=== PATIENT | male | born 1960 | race Caucasian/White ===

== ENCOUNTER → 2024-03-19 10:04 | Outpatient (REF) | payer OTHER, SELFPAY | LOC: RAD 10:04 | PROVIDERS: ATTENDING PHYSICIAN Nurse Practitioner Acute Care | DX: I35.0 Nonrheumatic aortic (valve) stenosis (principal) | CPT/HCPCS: 74174; 75572; Q9967 ==

== ENCOUNTER 2024-04-25 05:04 | Inpatient (IN) | payer OTHER, SELFPAY ==
[2024-04-09 09:36] VITALS: BMI 28.9
[2024-04-09 09:58] LABS: % Basophils 0.4 % (0-2); % Eosinophils 0.2 % (0-6); % Immature Granulocytes 0.4 % (0-0.5); % Lymphocytes 13.9 % (20.5-51.1); % Monocytes 7.6 % (1.7-9.3); % Neutrophils 77.5 % (42.2-75.2); Absolute Basophils 0.1 10^3/uL (0-0.2); Absolute Immature Granulocytes 0.1 10^3/uL (0-0.05); Absolute Lymphocytes 1.8 10^3/uL (1.2-3.4); Absolute Neutrophils 9.8 10^3/uL (1.4-6.5); Hematocrit 44.1 % (39.0-52.0); Hemoglobin 15.3 g/dL (13.0-18.0); Mean Corp Hgb Conc. 34.7 g/dL (33.0-37.0); Mean Corpuscular Hgb 29.1 pg (27.0-31.0); Mean Corpuscular Volume 83.8 fL (80.0-94.0); Mean Platelet Volume 10.5 fL (7.4-10.4); Nucleated Red Blood Cells % 0 % (-); Platelet Count 283 10^3/uL (130-400); Red Blood Cell Count 5.26 10^6/uL (4.70-6.10); Red Cell Dist. Width 12.5 % (11.5-14.5); White Blood Cell Count 12.7 10^3/uL (4.8-10.8)
[2024-04-09 10:08] LABS: INR 1.04; PT 13.6 Sec (11.4-14.6)
[2024-04-09 10:09] LABS: APTT 28.4 Sec (23.4-35.0)
--- NOTE | 2024-04-09 10:15 | CM ---
Chart reviewed. Met with the patient in PAT. Patient is independent of ADLS, lives with his in a 2 STH, 1 REJI, 0 DME. Reviewed preoperative and postoperative instructions and restrictions, along with showering guidelines. Gave patient 2
soaps. Patient may not be in the driving radius of CT Transitional RN and may need VN. Plan is for the patient to return home with CT Transitional RN vs VN
[2024-04-09 10:20] LABS: ALT (SGPT) 16 U/L (0-50); AST (SGOT) 19 U/L (17-59); Albumin 4.5 g/dl (3.5-5.0); Alkaline Phosphatase 74 U/L (38-126); Blood Urea Nitrogen 19 mg/dl (9-20); Calcium 9.7 mg/dl (8.4-10.2); Carbon Dioxide 24 mmol/L (22-30); Chloride 100 mmol/L (98-107); Direct Bilirubin 0.2 mg/dl (0.0-0.4); Estimated Creatinine Clearance 98 ml/min; Glucose 261 mg/dl (70-99); Potassium 4.1 mmol/L (3.5-5.1); Sodium 139 mmol/L (135-145); Total Bilirubin 0.7 mg/dl (0.2-1.3); Total Protein 7.1 g/dl (6.3-8.2); eGFR > 60.00
[2024-04-09 10:55] LABS: Glycohemoglobin (HgbA1c) 7.4 % (4.0-5.6)
[2024-04-09 11:13] LABS: Urine Albumin Negative (Neg - Trace); Urine Bilirubin Negative (Negative); Urine Character Clear (Clear); Urine Color Yellow; Urine Glucose 3+ (Negative); Urine Ketone Trace (Negative); Urine Leukocyte Negative (Negative); Urine Nitrite Negative (Negative); Urine Occult Blood Negative (Negative); Urine Specific Gravity 1.015 (<1.030); Urine Urobilinogen Negative (Neg - 1+)
[2024-04-25] VITALS (20 sets, daily range): BP systolic 79–162; BP diastolic 52–89; BMI 28.4
[2024-04-25] MEDS: MAGNESIUM OXIDE 500 MG PO (05:45)
[2024-04-25] MEDS: BACTROBAN 2% OINTMENT 1 APPLIC NASAL ×2 (05:45→19:59)
[2024-04-25] MEDS: PROTONIX 40 MG PO (05:45)
[2024-04-25] MEDS: LOPRESSOR 25 MG PO (05:45)
--- NOTE | 2024-04-25 06:23 | W.CVOR.SURPR ---
CVOR Surgeon Immed Pre Op
-
I have examined this patient prior to performance of the scheduled procedure.
The patient's condition is unchanged from the time of the dictated/written History and
Physical and the patient is able to undergo the scheduled procedure.
AVR (Bio) + KATT Clip
[2024-04-25 07:25] LABS: ACT+ - POC 93 Seconds (82-134)
[2024-04-25 08:21] LABS: ACT+ - POC 630 Seconds (82-134)
[2024-04-25 08:29] LABS: Urine Albumin Negative (Neg - Trace); Urine Bilirubin Negative (Negative); Urine Character Clear (Clear); Urine Color Yellow; Urine Glucose 3+ (Negative); Urine Ketone Negative (Negative); Urine Leukocyte Negative (Negative); Urine Nitrite Negative (Negative); Urine Occult Blood Negative (Negative); Urine Specific Gravity 1.015 (<1.030); Urine Urobilinogen Negative (Neg - 1+)
[2024-04-25 08:33] LABS: B.E. - POC 0.5 mmol/L; Glucose - POC 194 mg/dl (70-99); HCO3 - POC 24 mmol/L (21-29); Hematocrit - POC 40 % PCV (42-52); Hemodilution- POC No; Hemoglobin Calculated - POC 13.7; Ionized Calcium - POC 1.18 mmol/L (1.12-1.27); O2 Saturation %Calculated-POC 99.9 5 (92-96); PCO2 - POC 35 mmHg (35-45); PO2 - POC 264 mmHg (80-100); Potassium - POC 4.1 mmol/L (3.6-5.0); Sodium - POC 141 mmol/L (135-145); pH - POC 7.44 (7.35-7.45)
[2024-04-25 08:49] LABS: ACT+ - POC 599 Seconds (82-134)
--- NOTE | 2024-04-25 08:58 | CM ---
Addendum entered by SUSAN Carrero 04/25/24 14:04:
Referral sent to Roberto MAO for review. Awaiting response.
Original Note:
Patient in OR today for planned CT Surgery.
Reviewed initial assessment. Pt. resides w/ spouse in a private, 2 story home w/ 1 REJI.
Functionally, patient is indep. at baseline w/ ADLs, mobility without the use of any assisted device.
Antic. DC plan is for home w/ VN (CT Transitional Care RN unavailable due to geographical area).
CM to follow.
[2024-04-25 09:14] LABS: B.E. - POC 4.8 mmol/L; Glucose - POC 145 mg/dl (70-99); HCO3 - POC 28 mmol/L (21-29); Hematocrit - POC 27 % PCV (42-52); Hemodilution- POC Yes; Hemoglobin Calculated - POC 9.3; Ionized Calcium - POC 0.99 mmol/L (1.12-1.27); PCO2 - POC 34 mmHg (35-45); PO2 - POC 393 mmHg (80-100); POC Comment CPB; Potassium - POC 4.5 mmol/L (3.6-5.0); Sodium - POC 136 mmol/L (135-145); pH - POC 7.52 (7.35-7.45)
[2024-04-25 09:25] LABS: ACT+ - POC 554 Seconds (82-134)
[2024-04-25 09:43] LABS: B.E. - POC 3.2 mmol/L; Glucose - POC 147 mg/dl (70-99); HCO3 - POC 28 mmol/L (21-29); Hematocrit - POC 32 % PCV (42-52); Hemodilution- POC Yes; Ionized Calcium - POC 1.11 mmol/L (1.12-1.27); O2 Saturation %Calculated-POC 99.8 5 (92-96); PCO2 - POC 40 mmHg (35-45); PO2 - POC 205 mmHg (80-100); POC Comment WARM; Potassium - POC 4.2 mmol/L (3.6-5.0); Sodium - POC 140 mmol/L (135-145); pH - POC 7.44 (7.35-7.45)
[2024-04-25 09:46] LABS: ACT+ - POC 115 Seconds (82-134)
[2024-04-25 10:10] LABS: B.E. - POC 0.7 mmol/L; Glucose - POC 129 mg/dl (70-99); HCO3 - POC 24 mmol/L (21-29); Hematocrit - POC 29 % PCV (42-52); Hemodilution- POC No; Hemoglobin Calculated - POC 9.9; Ionized Calcium - POC 1.34 mmol/L (1.12-1.27); PCO2 - POC 34 mmHg (35-45); PO2 - POC 430 mmHg (80-100); POC Comment POST; Potassium - POC 3.8 mmol/L (3.6-5.0); Sodium - POC 141 mmol/L (135-145); pH - POC 7.46 (7.35-7.45)
--- NOTE | 2024-04-25 10:29 | W.PN.CT.SURG ---
CT Surgery Operative Note
-
CARDIAC SURGERY OPERATIVE REPORT
Preoperative Diagnosis: Severe symptomatic aortic valve stenosis with bicuspid morphology
Postoperative Diagnosis: Same
Procedure(s) Performed:
1. Standard sternotomy with aortic and right atrial cannulation
2. Surgical aortic valve replacement [25 mm bioprosthesis]
3. Left atrial appendage exclusion [35 mm clip]
4. Transesophageal echocardiography
5. Placement of temporary ventricular pacing wire
6. Rigid sternal fixation with 3 box plates
Date of Surgery: 04/25/2024
Comorbidities:
1. Severe symptomatic aortic valve stenosis
2. Recent STEMI requiring PCI and stenting
3. 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
4. Asthma
5. Depression
6. History of PUD with GI bleed
7. Hypertension
8. Hyperlipidemia
Attending Surgeon: Alvaro Baer MD, MS
Assistants: Angie Martin PA-C (present and necessary to medical receptionist assistant, retraction, suction, exposure, suture management, and wound closure under my direction)
Anesthesiology: Derian Lemons MD and Chris Waite CRNA
Scrub and Circulating RNs: Tricia Francois RN, Dwight Prajapati RN
Bulldogger: Sameer Lakhani CCP
Anesthesia: GETA
EBL: per perfusion records
Products: None
CPB Time: 70 minutes
Aortic Cross Clamp Time: 57 minutes
Indication(s) for Procedures: This is a 63-year male with known aortic valve stenosis. He recently had a STEMI requiring emergency stenting procedure. Recent echocardiogram demonstrated severe gradients. He also developed symptoms in the form of
shortness of breath and fatigue. Given his young age, multidisciplinary team discussion and lifelong planning for his aortic valve disease, consensus was to pursue surgical valve replacement with possible need for transcatheter valve in valve down
the line.
Aortic Valve Description: Functional bicuspid possible true bicuspid with left right fusion heavily calcified leaflets and heavily calcification down towards the noncoronary cusp in the annulus. Left and right coronary ostia were in their normal
anatomic positions.
Findings: Left ventricular ejection fraction preoperatively was 60% with no significant regional wall motion abnormalities. Following surgery his EF remained the same at 60 to 65% with no new regional wall motion abnormalities. His aortic valve
had a fused left right cusp, although it did appear to be somewhat true bicuspid. The calcification extended deep down into the noncoronary cusp annulus and required extensive debridement. A total of 16 annular sutures were placed, of those a
total of 5 pledgeted 2 Ethibond sutures were placed towards the noncoronary cusp annulus as this would require heavy debridement. These were placed through the LVOT through the annulus and through the sewing cuff of the valve. The valve was
secured in place with core knots. The valve which shows and sized to a 25 mm bioprosthesis. His left atrial appendage was verified to be free of any thrombus or debris preoperatively and a clip was applied flush to the base and found to be totally
occlusive on Doppler and color flow with no residual stump. After removal of the cross-clamp, there was no paravalvular leak, the mean gradient across the new bioprosthesis was 3 mmHg. There is normal leaflet excursion of the valve. There was
sinus rhythm. His cardiac index was over 2.1 without inotropic support. No blood products were required. Due to how active he is, additional plates were placed to his sternum for reinforcement.
Specimen(s): Aortic valve leaflet.
Prosthesis:
1. 35 mm clip, serial #[id number]
2. 25 mm Cardenas Inspiris Resilia aortic valve, serial #[id number]
3. 1 gold box plate, 2 silver box plates
Description of Procedure: The patient was taken to the operating room. Their identity and procedure to be performed were verified and they were positioned supine on the operating table. Induction via general anesthesia with endotracheal intubation
was performed and central venous access and arterial monitoring were inserted. A preoperative transesophageal echocardiogram was performed to assess cardiac function and valvular function. The patient was then prepped and draped from chin to feet in
a sterile fashion. A preoperative time-out was performed with all members of the team present. A midline chest incision was performed along with median sternotomy. The innominate vein was isolated. Full heparinization was given (a total of 45,000
units). We created a pericardial well. The aortic cannulation site was chosen where it was soft, pliable, and free of calcium. Cannulation was performed with an arterial cannula in the ascending aorta and a triple-stage venous cannula through the
right atrial appendage. The arterial cannula line had an appropriate bounce and correlating pressures with test dosing. Next, a root vent/antegrade cannula was inserted into the ascending aorta. The ACT was confirmed to be over 400 and retrograde
autologous priming was performed before commencing cardiopulmonary bypass. The pulmonary artery was away from the aorta to facilitate a clamp site and aortotomy. A left ventricular vent was placed at the right superior pulmonary vein and
secured. The aortic cross-clamp was placed after decreasing the flow on the bypass and mean arterial pressure. A total of 1.2L initial dose of antegrade Del-Nido cardioplegia solution was given and planned for re-dosing every 75 minutes as
necessary. There was rapid electro-mechanical arrest of the heart at 400 cc of cardioplegia. The left ventricle was observed for distention on echocardiogram and manual palpation. Cold slush was placed into a sponge and topically on the RV while we
systemically cooled to 34 degrees centigrade. After the heart was fully arrested, it was mobilized medially and the ligament of [place] was divided. Left atrial appendage was verified to be approximate 35 mm in length and a 35 mm clip was placed
flush to the base.
Carbon dioxide was used to flood the field. We manually identified the location of the right coronary take off. An aortotomy was made approximately 2cm above the sinotubular junction. The location of both left and right coronary vessels were
visualized in the root.The leaflets were excised and sent for pathological assessment. The annulus was debrided of any calcium being mindful of the annulus and membranous septum. The root and left ventricular outflow tract were thoroughly irrigated
to remove any debris. A total of 11 non-pledgeted and 5 pledgeted 2-0 ethibond inverted annular sutures were placed [id number] circumferentially. These were brought through the sewing cuff of the prosthetic valve which as then parachuted into
place. The left and right coronary ostia were visualized and were unobstructed by the valve. A Cor-Knot device was used to secure the annular sutures. The valve was inspected and was well seated. The aortotomy was approximated with 4-0 prolene in
two layers. De-airing maneuvers were performed and temporary bipolar ventricular pacing wires were placed on the base of the right ventricle. The patient was placed in a Trendelenburg position and flows on bypass were lowered. The aortic cross clamp
was removed and flows were slowly brought back up. The aortotomy appeared hemostatic. Transesophageal echocardiography revealed no paravalvular leak and appropriate prosthetic function. Once de-airing was satisfactory, the left ventricular and root
vents were removed. After verifying acceptable parameters, we initiated weaning from cardiopulmonary bypass. Once we were off cardiopulmonary bypass, the venous cannula was clamped and removed. A test dose of protamine was administered and the
patient was monitored for any adverse reaction before resuming protamine. Once half of the protamine dose was delivered, pump suckers were turned off and the systolic blood pressure was lowered for aortic decannulation. The aortic cannula was
removed and pursestrings were tied down. All cannulation sites were oversewn with a 4-0 prolene. The aortotomy suture line was inspected and hemostasis was confirmed. Mediastinal hemostasis was obtained. Two 24Fr Ryley drains were placed within the
pericardium. The sternum was approximated with 4 #7 single and 3 #8 double stainless steel wires. Additional box plates were placed at the manubrium, sternal body, and lower portion of the sternal body. Fascia was approximated with #1 vicryl
suture. The subcutaneous, dermis and epidermis were closed in layers in a running fashion. The skin wound was cleansed and dressed.
All instrument, sponge, and needle counts were confirmed to be correct x 2 at the end of the operation. The patient was transferred to the cardiac intensive care unit in critical but stable condition.
I, Dr. Alvaro Baer, was present, scrubbed for, and performed all critical elements of this procedure.
Alvaro Baer MD, MS
Cardiothoracic Surgeon
[facility]
This operative dictation was created using the [employer] dictation system. Please excuse any grammatical, typographical, or 'sound alike' errors
[2024-04-25 10:39] LABS: Glucose - Point of Care 105 mg/dl (70-99)
[2024-04-25 10:55] LABS: Hematocrit 35.2 % (39.0-52.0); Hemoglobin 12.5 g/dL (13.0-18.0); Platelet Count 152 10^3/uL (130-400)
[2024-04-25 11:01] LABS: B.E. -0.2 mmol/L; HCO3 24.8 mmol/L (21-28); Ionized Calcium 1.26 mMOL/L (1.15-1.33); O2 Saturation % 99.3 % (94-98); PCO2 41 mmHg (35-48); PO2 99 mmHg (83-108); Potassium 3.7 mMOL/L (3.5-5.1); Sodium 136 mMOL/L (136-145); pH 7.39 (7.35-7.45)
[2024-04-25 11:05] LABS: Mixed Venous O2 Saturation 76.8 %
[2024-04-25] MEDS: ANCEF 10 IV ×2 (11:07)
[2024-04-25] MEDS: KCL 50 IV ×2 (11:08→12:16)
[2024-04-25 11:09] LABS: INR 1.48; PT 17.8 Sec (11.4-14.6)
[2024-04-25 11:10] LABS: APTT 38.2 Sec (23.4-35.0)
[2024-04-25 11:13] LABS: Blood Urea Nitrogen 16 mg/dl (9-20); Estimated Creatinine Clearance 86 ml/min; Glucose 112 mg/dl (70-99); Magnesium 3.5 mg/dl (1.6-2.3)
--- NOTE | 2024-04-25 11:26 | PTCARENOTE ---
Received pt from [facility]. Pt is intubated and sedated. Levo @ 2, Precedex @ 0.5, Insulin @ 1. Pupils 3mm. E/T size 8.0, 22 @ lip. Vent set to SIMV, FIO2 40%, Lungs clear, breath sounds equal bilaterally. NSR on monitor with no pacer spikes noted.
V-wires intact set to 40-20-2. [place] @ 45cm. C/O 4.16, C/I 2.11. A-line zeroed and calibrated, Mediastinal C/TX2, Suction to -20cm, no tidal or crepitus noted, draining red fluid, WNL. Henson intact, draining clear, yellow urine WNL. Hypoactive B/S. R
IJ cordis to KVO, R PVA 20g intact, no redness or edema noted. Sternal incision clean, dry, approx. with sternal glue present.
--- NOTE | 2024-04-25 11:51 | W.PN.UPDATE ---
Update Note
Progress Note Update
IV fluids: 800
U.O.:� 525
UF:� 450
Blood:� None
Wires:� Ventricular
Inotropes:� None
Pressors:� Levophed
Sedatives:� Precedex
�
NEURO: sedated on precedex, pupils +3mm B/L
RESP: #8OT @23cm> 12/500/40/5; Lungs clear B/L. 2 mediastinal (20cc on arrival) chest tubes to -20cm suction. Sanguineous drainage
CV: RRR +S1, S2, no S3, no�rub, no murmur. Dermabond to median sternotomy. RIJ w/[place] locked @ 45cm. PA /16; CVP 12;
ABD: round, soft, no BS
EXT: no edema, +2/4 DP pulses B/L, no femoral bruit, left radial A-line intact
: Henson with clear yellow urine
�
A/P: POD #0 s/p Surgical aortic valve replacement [25 mm bioprosthesis], KATT exclusion
JOHN: EF�60-65%
- wean and extubate
- Monitor CT and urine output
- Follow up labs and CXR
- Wean levophed for maps >65
- Will start ASA tonight
- EKG sent to cards
- Cards consulted
-Will need prophylactic antibiotic pre dental procedures
�
# acute surgical blood loss anemia-expected
- trend CBC
�
#hx of GIB/PUD
- Continue protonix
# T2DM
- insulin infusion x 48h at least
- diabetes management consulted
�
# Hyperlipidemia
- resume�statin
[2024-04-25 12:12] LABS: Glucose - Point of Care 120 mg/dl (70-99)
[2024-04-25] MEDS: NOVOLOG FLEXPEN SC ×3 (12:17)
[2024-04-25] MEDS: NEURONTIN PO (12:17)
[2024-04-25] MEDS: NSS 500 IV (12:18)
--- NOTE | 2024-04-25 12:29 | PN.DE.MGMTRT ---
Insulin Management
- -
04/25/2024: Diabetes management Consult
63 year old male admitted for elective AVR. PMH: CAD, NV s/p cath, HTN, HLD, Asthma, h/o GIB/PUD, Insulin dependent T2DM. A1C 7.4%, Cr 0.8, eGFR >60
Pt is currently in OR, not available for interview, information obtained form chart review, shows Home diabetes medication including; NovoLog 10 units AC and Lantus 30 units @ HS.
Plan to initiate glycemic protocol x48 hrs post-op. anticipate high insulin requirements given outpatient insulin regimen.
Consider continuation of glycemia protocol throughout the weekend if pt is requiring >5 units /hr of insulin while on drip.
Diabetes team will followup with pt on Sunday and assist with transitioning off drip.
Diabetes History
- -
Type of Diabetes: 2 requiring insulin
Pre-Admission Diabetes Regimen
04/25/24
10:42
Creatinine 0.8
Lab Results
Hemoglobin A1c 7.4 % (4.0-5.6) H 04/09/24 08:40
Insulin Pump Settings
IP Diabetes Regimen
04/25/24 04/25/24 04/25/24
10:38 10:42 12:10
Glucose 112 H
POC Glucose 105 H 120 H
Patient Education
[2024-04-25] MEDS: LR 250 ML IV ×3 (12:48→18:00)
[2024-04-25 13:02] LABS: Glucose - Point of Care 95 mg/dl (70-99)
--- NOTE | 2024-04-25 13:09 | PTCARENOTE ---
Family updated at bedside, C/I low, CTNP Vanessa notified. LR bolus 250 given. Levo remains at 3, Precedex continued wean to off.
[2024-04-25] MEDS: DILAUDID 0.25 MG IV ×2 (13:36→19:20)
[2024-04-25] MEDS: OFIRMEV 100 IV (13:44)
[2024-04-25 14:15] LABS: Glucose - Point of Care 87 mg/dl (70-99)
[2024-04-25 14:27] LABS: B.E. -0.3 mmol/L; HCO3 24.1 mmol/L (21-28); O2 Saturation % 99.2 % (94-98); PCO2 38 mmHg (35-48); PO2 156 mmHg (83-108); pH 7.41 (7.35-7.45)
[2024-04-25] MEDS: TYLENOL PO (14:27)
[2024-04-25 14:35] LABS: Hematocrit 35.8 % (39.0-52.0); Hemoglobin 12.9 g/dL (13.0-18.0); Platelet Count 206 10^3/uL (130-400)
--- NOTE | 2024-04-25 14:45 | W.PN.CD ---
Addendum entered and electronically signed by Shaq Merino MD 04/25/24 15:29:
63 yo male with PMH of severe , now s/p bio-AVR today, also CAD with prior RCA stent 2018. He has been extubated. Exam with RRR, no murmurs, trace edema. Tele: SR 70-80s. EKG: SR, nonspecific ST abnormality.
Cont ASA, statin.
Assess to resume ACEi as he recovers from OR.
Original Note:
Today's Communication / Plan
-
post-op management per CTS
Impression / Plan
-
Mr. Mcghee is a 63 yo male with severe , who is s/p bio AVR and KATT exclusion by Dr. Baer today. Outpatient account development associate is Dr. Steele at [facility].
Aortic stenosis - severe.
- s/p bio AVR and KATT exclusion by Dr. Baer today.
- management per CT surgery post-op.
CAD - prior mid RCA stent 01/2019.
- patent RCA stent and no new disease on cath 01/2024.
HTN - stable on pressors post-op.
- monitor and resume outpatient meds when able.
HLD - continue Crestor.
DM - insulin drip post-op.
Physical Exam
Vital Signs/Labs
Vital Signs
Temp Pulse Resp BP Pulse Ox
98.5 F 88 12 96/63 100
04/25/24 14:00 04/25/24 13:00 04/25/24 13:00 04/25/24 13:00 04/25/24 14:00
04/24/24 04/25/24 04/26/24
06:59 06:59 06:59
Actual Weight 181 lb 7.047 oz
04/25/24 14:09
04/25/24 10:42
PT 17.8 Sec (11.4-14.6) H 10/04/24 10:42
INR 1.48 04/25/24 10:42
APTT 38.2 Sec (23.4-35.0) H 04/25/24 10:42
Magnesium 3.5 mg/dl (1.6-2.3) H 04/25/24 10:42
Physical Exam
Constitutional: No acute distress
EENT: Anicteric and Moist mucous membranes
Cardiovascular: Rhythm & rate is regular
Respiratory: Respiratory effort normal and Lungs clear to auscul. (intubated/sedated)
GI: Soft
Neuro/Psych: Other (intubated/sedated)
Other: Skin (warm, dry)
Data Reviewed
-
Date of Service: April 25, 2024
Medical Decision Making: External Notes and Reviewed Test Results
EKG: Tracing Personally Visualized and interpreted
Echo: Report Reviewed by me
Labs: Labs Reviewed by me
Old Records: Reviewed
--- NOTE | 2024-04-25 14:54 | PTCARENOTE ---
Pt extubated @ 1445. tolerated extubation well. POX 100%. Lungs clear, diminished in bases. I/S performed 750. Mouth care provided. Repositioned for comfort. Family at bedside.
[2024-04-25] MEDS: TORADOL 15 MG IV ×2 (15:01→22:58)
--- NOTE | 2024-04-25 15:08 | CON.INTV ---
Consultation
Consultation Request
Date/Time Consultation Requested: 04/25/24
Date/Time Consultation Performed: 04/25/24
Performing Provider: Adrián
Reason for Consultation: ICU
Medical History
-
History of Present Illness:
Patient is a 63-year-old male with previous history of aortic valve stenosis with significant decline in exercise capacity over the past 6 months presenting for elective surgical intervention. He had noted intermittent left-sided chest pain,
chronic fatigue with syncopal episodes. Underwent surgical aortic valve replacement on 04/25/2024 and postoperatively transferred to CVICU for further management.
.
Past Medical History
Past Medical History: Other (see list below)
Social History
Tobacco: Former Smoker
Alcohol: None
Drug: None
Family History
Family History: Reviewed & Not Pertinent
Allergies / Home Medications
Allergies
Allergy/AdvReac Type Severity Reaction Status Date / Time
No Known Allergies Allergy Unverified 04/04/24 08:37
Home Medications
�Medication �Instructions �Recorded �Confirmed �Last Taken �Type
ramipril 2.5 mg capsule 2.5 mg PO DAILY 01/21/19 04/25/24 04/24/24 08:00 History
rosuvastatin 20 mg tablet 20 mg PO HS 01/21/19 04/04/24 01/19/19 22:00 History
aspirin 81 mg chewable tablet 81 mg PO DAILY 01/22/19 04/25/24 04/24/24 08:00 Rx
metoprolol succinate 25 mg 25 mg PO DAILY ##90 01/22/19 04/25/24 04/24/24 08:00 Rx
tablet,extended release 24 hr
pantoprazole 40 mg tablet,delayed 40 mg PO DAILY ##90 01/22/19 04/25/24 04/24/24 08:00 Rx
release
albuterol 90 mcg-budesonide 80 2 inh inhalation PRN PRN SOB 04/04/24 04/25/24 04/22/24 History
mcg/actuation HFA aerosol inhaler
(Airsupra)
fluticasone furoate 100 1 inh inhalation DAILY 04/04/24 04/04/24 Unknown History
mcg/actuation blister powder for
inhalation (Arnuity Ellipta)
insulin glargine 100 unit/mL (3 30 unit SC HS 04/04/24 04/25/24 04/24/24 20:00 History
mL) subcutaneous pen (Basaglar
KwikPen U-100 Insulin)
insulin lispro 100 unit/mL 10 sliding scale dose SC ACHSPRN 04/04/24 04/25/24 04/25/24 05:00 History
subcutaneous pen
Review of Systems
-
History Source: Patient
All other systems: Negative unless noted
Vitals / Labs / Diagnostic Testing
Vital Signs
Temp Pulse Resp BP Pulse Ox
98.5 F 78 15 105/67 99
04/25/24 14:00 04/25/24 14:51 04/25/24 14:51 04/25/24 14:00 04/25/24 14:51
Lab Data
04/25/24 14:09
04/25/24 10:42
Laboratory Results
04/25/24 04/25/24
10:42 14:09
PT 17.8 H
INR 1.48
APTT 38.2 H
pH 7.39 7.41
pCO2 41 38
pO2 99 156 H
HCO3 24.8 24.1
O2 Delivery Level
Diagnostic Testing:
Physical Exam
-
HEENT: Normocephalic, Anicteric and Moist Mucous Membranes
Cardiovascular: S1/S2 and Regular Rhythm
Respiratory: Clear, Non-Labored Respirations and Other (chest tubes)
GI: Soft, Non Distended and Non Tender
Neurology: Awake, Alert, Oriented and No Motor Deficits
Skin: Warm, Dry and Good Color
General: Comfortable and Other (NAD)
Assessment
-
Patient is a 63-year-old male with previous history of aortic valve stenosis with significant decline in exercise capacity over the past 6 months presenting for elective surgical intervention. He had noted intermittent left-sided chest pain,
chronic fatigue with syncopal episodes. Underwent surgical aortic valve replacement on 04/25/2024 and postoperatively transferred to CVICU for further management.
Severe s/p AVR 04/25/24
Perioperative mechanical ventilation
BAHENA
Conditions present prior to admission
Recent STEMI requiring PCI and stenting
IDDM
Asthma
Depression
History of PUD with GI bleed
Hypertension
Hyperlipidemia
Shoulder surgery
Former smoker
RML pulm nodule, 8mm
Plan
S/p AVR POD #0
Titrate off pressors per protocol
ECHO reviewed with normal function
PA catheter readings reviewed
Management of chest tubes per primary service
Pain control
RASS goal of 0 to -1
Intubated for procedure, extubated and tolerated well
ABG(s) reviewed/adequate
CXR with no obvious opacities/infiltrates, low lung volumes, ETT in good position, lines/tubes in place
Extubated per protocol
Maintain supplement oxygen as needed
No prior history of pulmonary disease, was a former smoker quit >[address] with 8mm nodule RML--will need to be followed as OP
No prior PFTs for review
Can add nebulizers if needed
Aspiration precautions
Encouraged incentive spirometry, OOB/ambulation/early mobility
Advance diet as tolerated following extubation
GI prophylaxis if indicated for mechanical ventilation >48 hours
Monitor critical I/O's
Henson/chest tube output
Hb/platelets postoperatively stable
Trend CBC for now
Can transfuse if indicated for Hb <7, plt <50 in surgical patients
DVT prophylaxis including SCDs
Insulin protocol initiated and ongoing
Transition to SQ/off as indicated per team
We will follow
Diagnostic Data
Chest X-Ray: 04/25/24- Lines/Tubes/Devices: Endotracheal tube in satisfactory position. Right IJ [place] Robi catheter with tip in the region of the main pulmonary artery. Couple of mediastinal drains.
Lungs/Pleura: No focal airspace disease. No pleural effusions or pneumothorax.
CT Scan: CHEST 03/19/24- Incidental peripheral lateral segment right middle lobe 8 mm groundglass opacity. Cholelithiasis. No CT evidence of acute cholecystitis. No bile duct dilatation.
Minor proximal sigmoid and descending colon diverticulosis. No evidence of bowel obstruction. Nonspecific right upper quadrant fluid/soft tissue stranding situated between the duodenum and proximal transverse colon, as described. Exact etiology
uncertain. Possibly related to inflammatory changes of duodenitis or diverticulitis. Recommend correlation with clinical exam to assess for possibility right upper quadrant pain.
Echo: 04/25/24- Normal biventricular systolic function with LVEF of 60-65% by visual inspection. No regional wall motion abnormalities seen. Bicuspid aortic valve with severe stenosis. Grossly normal mitral and tricuspid valves. Normal left atrial
appendage. Grade III atheromatous disease of the arch and descending thoracic aorta.
PFT's:
Reports and relevant images were personally reviewed.
-----
Critical Care time 50 mins -- The patient is admitted for acute critical illness for the treatment of vital organ failure and/or prevention of further life-threatening conditions. Total care includes time spent in review of history, physical exam,
medications, hemodynamic/ventilator parameters, laboratory data, imaging and discussion with house staff, pharmacy, respiratory therapy, admitting office escort, and nursing.
[2024-04-25 15:10] LABS: Glucose - Point of Care 118 mg/dl (70-99)
[2024-04-25 16:18] LABS: Glucose - Point of Care 126 mg/dl (70-99)
[2024-04-25] MEDS: PACERONE 200 MG PO (16:46)
[2024-04-25] MEDS: ROXICODONE 5 MG PO (16:50)
[2024-04-25] MEDS: NEURONTIN 100 MG PO (16:51)
[2024-04-25] MEDS: LOW STRENGTH ASPIRIN 81 MG PO (17:02)
--- NOTE | 2024-04-25 17:41 | PTCARENOTE ---
VSS, NSR on monitor. Pt. turned sided to side and CHG bath completed. Pt tolerated rotation. No large C/T output post movement. Pt resting in bed.
[2024-04-25] MEDS: ANCEF 5 IV (17:58)
[2024-04-25 18:07] LABS: Glucose - Point of Care 103 mg/dl (70-99)
[2024-04-25] MEDS: FLEXERIL 5 MG PO (19:21)
[2024-04-25] MEDS: FLOVENT 44 MCG INHALER 2 PUFF INH (19:57)
[2024-04-25] MEDS: SENOKOT-S 1 TABLET PO (20:00)
[2024-04-25 20:21] LABS: Glucose - Point of Care 111 mg/dl (70-99)
[2024-04-25 20:41] LABS: Potassium 4.6 mmol/L (3.5-5.1)
[2024-04-25] MEDS: CALCIUM CHLORIDE 10% SYRINGE 60 MG IV (20:58)
[2024-04-25] MEDS: ZOFRAN 4 MG IV (21:52)
--- NOTE | 2024-04-25 22:00 | PTCARENOTE ---
VSS. NSR on monitor. Pt complained of gastric pain and expressed concern about previous gastric ulcer. Discussed with MARLEN Reina. Pepcid ordered and given (See MAR).
[2024-04-25 22:05] LABS: Glucose - Point of Care 109 mg/dl (70-99)
--- NOTE | 2024-04-25 22:15 | PTCARENOTE ---
VSS. NSR on monitor. Pt vomited small amount of clear emesis. Zofran given (see MAR). Pt stated gastric pain resolved after medication. Pt resting in bed.
[2024-04-25] MEDS: PEPCID 20 MG IV (22:18)
[2024-04-25] MEDS: NSS (PRESERVATIVE FREE) 8 ML IV (22:18)
[2024-04-25 23:11] LABS: Glucose - Point of Care 95 mg/dl (70-99)
[2024-04-25] MEDS: REGLAN 10 MG IV (23:33)
[2024-04-25] MEDS: DILAUDID 0.5 MG IV (23:42)
[2024-04-26] VITALS (35 sets, daily range): BP systolic 91–154; BP diastolic 43–78; PULSE 90–100; O2SAT 94–98; BMI 29.5
[2024-04-26 00:01] LABS: Glucose - Point of Care 106 mg/dl (70-99)
--- NOTE | 2024-04-26 00:14 | PTCARENOTE ---
Pt with increased pain to sternum and upper back, posterior neck at 2300. Elevated BP. PA at bedside. Toradol 15 mg IV given at 2258. Levo gtt off. Cardene gtt started at 10 mg/hr. Titrated to 12.5 mg/hr. NTG gtt started at 5 mcg/min from 3368-1716
per PA. Cardene gtt titrated down to off. Goal SBP 120's per GLADYS Diez. Reglan 10 mg IV x 1 per stat order, then Dilaudid 0.5 mg IV at 2342 for severe upper back pain. Levo started at 1 mcg/min at 0000 for BP 90's systolic. CI done: 2.13. UO for
0000 was 15 mls. PA aware of all outputs, hemodynamics, gtts. Pt resting comfortable, sleeping after dilaudid. given. [place] easily to voice. Oriented x 4. Speech clear.
Pt on 2 L/NC/O2. Sats 96%. BBS present. Decreased to B bases. Audible heart tones. V wire attached to temporary PM, settings include backup rate 40, mA 20, sensitivity 0.8. Pt in SR, rate 80's, no ectopy. For lines, wound and pulse assessments, see
flowsheets and nursing assessment.
Mediastinal CTx x 2 to 1 pleurevac, to -20 cm suction. Red drainage. Indwelling urinary catheter with clear, yellow urine. Hourly urine and CT outputs recorded. Glycemic protocol maintained. Ongoing plan of care.
[2024-04-26] MEDS: TYLENOL 1000 MG PO ×4 (00:45→22:46)
[2024-04-26] MEDS: CRESTOR 20 MG PO ×2 (00:49→22:45)
[2024-04-26] MEDS: PACERONE 200 MG PO ×4 (00:49→22:46)
[2024-04-26] MEDS: NEURONTIN 100 MG PO ×4 (00:49→22:45)
[2024-04-26] MEDS: ANCEF 5 IV ×2 (02:19→11:24)
[2024-04-26 02:32] LABS: Glucose - Point of Care 98 mg/dl (70-99)
[2024-04-26] MEDS: DILAUDID 0.25 MG IV ×4 (03:33→22:47)
[2024-04-26 03:54] LABS: Glucose - Point of Care 130 mg/dl (70-99)
[2024-04-26] MEDS: ROXICODONE 5 MG PO ×5 (04:00→20:17)
[2024-04-26 04:05] LABS: Hematocrit 31.3 % (39.0-52.0); Hemoglobin 11.2 g/dL (13.0-18.0); Mean Corp Hgb Conc. 35.8 g/dL (33.0-37.0); Mean Corpuscular Hgb 29.3 pg (27.0-31.0); Mean Corpuscular Volume 81.9 fL (80.0-94.0); Mean Platelet Volume 10.2 fL (7.4-10.4); Platelet Count 166 10^3/uL (130-400); Red Blood Cell Count 3.82 10^6/uL (4.70-6.10); Red Cell Dist. Width 12.5 % (11.5-14.5); White Blood Cell Count 13.4 10^3/uL (4.8-10.8)
--- NOTE | 2024-04-26 04:14 | PTCARENOTE ---
Pt repositioned. C/O sternal pain 11/29. Dilaudid 0.25 mg IV at 0333. Labs drawn and sent. Pt continues to c/o sternal pain 4-11/29. Roxicodone 5 mg po given at 0400. EKG done for am. Given to GLADYS Diez. Cardene gtt at 2.5 mg/hr. CI checked: 2.9.
GLADYS Diez at bedside and aware. Currently, pt sleeping after pain medications. Stated pain was 'starting to ease' before falling asleep.
[2024-04-26 04:31] LABS: Blood Urea Nitrogen 22 mg/dl (9-20); Calcium 8.9 mg/dl (8.4-10.2); Carbon Dioxide 21 mmol/L (22-30); Chloride 108 mmol/L (98-107); Estimated Creatinine Clearance 86 ml/min; Glucose 132 mg/dl (70-99); Magnesium 2.1 mg/dl (1.6-2.3); Potassium 4.9 mmol/L (3.5-5.1); Sodium 136 mmol/L (135-145); eGFR > 60.00
--- NOTE | 2024-04-26 05:26 | W.PN.CT ---
Today's Communication / Plan
-
-pod #1
-CI 2.90, CO 5.71. Drips: Insulin, Cardene 2.5
-CT output: 2 meds 140/355 in 12 /24 hrs
-deline
-continue insulin
-current meds : ASA, Plavix, Lopressor Amio, Protonix
-encourage IS, OOB
Assessment / Plan
-
- Severe symptomatic AV stenosis with bicuspid morphology- s/p Surgical aortic valve replacement [25 mm bioprosthesis Cardenas Inspiris Resilia]; LAAE [35 mm clip] by Dr. Baer on 04/25/24, pod #1
- Intraop JOHN: LVEF preop was 60% and postop 60-65% with no wma. There was no paravalvular leak, the mean gradient across the new bioprosthesis was 3 mmHg. There was normal leaflet excursion of the valve.
- Recent STEMI requiring PCI and stenting of RCA 01/2019
- Diabetes melitis II, on insulin
- Asthma
- Depression
- History of PUD with GI bleed
- Hypertension
- Hyperlipidemia
- b/l shoulder surgery
- Acute postop blood loss anemia- stable, no transfusion
- Acute postop atelectasis
- Acute postop hypovolemia with subsequent hypervolemia
Discussed patient care with: Nursing and Care Team
Subjective
-
Date of Service: April 25, 2024
Objective Data
-
Lab Results
04/25/24 14:09
04/25/24 20:17
PT 17.8 Sec (11.4-14.6) H 04/25/24 10:42
INR 1.48 04/25/24 10:42
APTT 38.2 Sec (23.4-35.0) H 04/25/24 10:42
Vital Signs
Vital Signs
Temp Pulse Resp BP Pulse Ox
99.4 F 77 11 110/57 97
04/25/24 22:00 04/25/24 20:30 04/25/24 20:30 04/25/24 20:00 04/25/24 22:00
CT Intake/Output/Weight
04/25/24 04/25/24 04/26/24
06:59 18:59 06:59
Intake Total 1318.2 / 1493.2 175 / 1493.2
Output Total 945 / 1080 135 / 1080
Balance 373.2 / 413.2 40 / 413.2
SaO2: 97
Physical Exam
-
General: Awake and AOx3
Cardiovascular: Regular rate & rhythm, No Murmurs and No Rub
Respiratory: Decreased Breath Sounds
Sternum: Stable
Incision: Clean, Dry and Intact
Extremities: No Edema (1+DPs b/l)
Data Reviewed
-
Lab Results: Results Reviewed
Medications: Active Meds Reviewed
Chest X-Ray: Report Reviewed
ECG: Report Reviewed and Image Reviewed
[2024-04-26 06:14] LABS: Glucose - Point of Care 100 mg/dl (70-99)
--- NOTE | 2024-04-26 07:15 | PTCARENOTE ---
Pt delined. [place] Robi catheter d/c'ed per protocol. L radial A-line d/c'ed per protocol. Pt with 5/10 lower sternal, upper belly pain. Dilaudid 0.25 mg IV given. See SEP. Pt helped to standing with 2 RNs. No c/o dizziness, lightheadedness. Pt
weighed on standing scale. Pt then helped to chair. BP taken. SBP 105. Pt with sinus tachycardia during transfer 100's. After sitting in chair, HR SR-ST 90-100's. Report to MINDY Ravi this am. Walking rounds done. called into unit and updated.
[2024-04-26] MEDS: FLOVENT 44 MCG INHALER 2 PUFF INH ×2 (07:21→19:47)
[2024-04-26 08:04] LABS: Glucose - Point of Care 116 mg/dl (70-99)
[2024-04-26] MEDS: LIDOCAINE 4% PATCH 1 PATCH TOPICAL (08:41)
[2024-04-26] MEDS: ALBUMIN 5% 250 IV (08:42)
[2024-04-26] MEDS: LOW STRENGTH ASPIRIN 81 MG PO (08:43)
[2024-04-26] MEDS: SENOKOT-S 1 TABLET PO ×2 (08:43→20:30)
[2024-04-26] MEDS: MAGNESIUM OXIDE 500 MG PO ×2 (08:43→20:29)
[2024-04-26] MEDS: MUCINEX 600 MG PO ×2 (08:43→20:29)
[2024-04-26] MEDS: PROTONIX 40 MG PO (08:43)
--- NOTE | 2024-04-26 09:37 | PTCARENOTE ---
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 Slightly anxious, emotional support provided. NSR/ST via cm, SaO2 @ 95% on 2lnc. RIJ Cordis w/kvo infusing. Epicardial V-wire to pulse generator
set to back up rate 40bpm, no spikes noted. Mediastinal chest tubes x 2 (Y-connected to one pleurevac) to -20cm suction w/no air leak noted. Henson catheter to gravity. All procedural sites stable. Patient updated to plan of care for the day, in
agreement. See work list for full assessment and interventions performed.
[2024-04-26] MEDS: BACTROBAN 2% OINTMENT 1 APPLIC NASAL ×2 (09:41→20:31)
[2024-04-26] MEDS: NOVOLIN R INSULIN INFUSION 100 IV (09:41)
--- NOTE | 2024-04-26 09:42 | W.PN.INTV ---
Today's Communication / Plan
Recommendations
Doing well today, stable on RA
Off pressors, titrating down on insulin gtt
Pain minimal, chest tubes are in place
Further postop management per team
Can likely transfer to tele once off insulin gtt, we will sign off upon transfer
Assessment
-
Patient is a 63-year-old male with previous history of aortic valve stenosis with significant decline in exercise capacity over the past 6 months presenting for elective surgical intervention. He had noted intermittent left-sided chest pain,
chronic fatigue with syncopal episodes. Underwent surgical aortic valve replacement on 04/25/2024 and postoperatively transferred to CVICU for further management.
Severe s/p AVR 04/25/24
Perioperative mechanical ventilation
BAHENA
Conditions present prior to admission
Recent STEMI requiring PCI and stenting
IDDM
Asthma
Depression
History of PUD with GI bleed
Hypertension
Hyperlipidemia
Shoulder surgery
Former smoker
RML pulm nodule, 8mm
Plan
S/p AVR POD #1
Titrated off pressors per protocol
ECHO reviewed with normal function
PA catheter discontinued
Management of chest tubes per primary service
Pain control
RASS goal of 0 to -1
Intubated for procedure, extubated and tolerated well
ABG(s) reviewed/adequate
CXR with stable postop changes
Maintain supplement oxygen as needed
No prior history of pulmonary disease, was a former smoker quit >[address] with 8mm nodule RML--will need to be followed as OP
No prior PFTs for review
Can add nebulizers if needed
Aspiration precautions
Encouraged incentive spirometry, OOB/ambulation/early mobility
Advance diet as tolerated following extubation
GI prophylaxis if indicated for mechanical ventilation >48 hours
Monitor critical I/O's
Henson/chest tube output
Hb/platelets postoperatively stable
Trend CBC for now
Can transfuse if indicated for Hb <7, plt <50 in surgical patients
DVT prophylaxis including SCDs
Insulin protocol initiated and titrating off
Transition to SQ/off as indicated per team
Diagnostic Data
Chest X-Ray: 04/25/24- Lines/Tubes/Devices: Endotracheal tube in satisfactory position. Right IJ [place] Robi catheter with tip in the region of the main pulmonary artery. Couple of mediastinal drains.
Lungs/Pleura: No focal airspace disease. No pleural effusions or pneumothorax.
CT Scan: CHEST 03/19/24- Incidental peripheral lateral segment right middle lobe 8 mm groundglass opacity. Cholelithiasis. No CT evidence of acute cholecystitis. No bile duct dilatation.
Minor proximal sigmoid and descending colon diverticulosis. No evidence of bowel obstruction. Nonspecific right upper quadrant fluid/soft tissue stranding situated between the duodenum and proximal transverse colon, as described. Exact etiology
uncertain. Possibly related to inflammatory changes of duodenitis or diverticulitis. Recommend correlation with clinical exam to assess for possibility right upper quadrant pain.
Echo: 04/25/24- Normal biventricular systolic function with LVEF of 60-65% by visual inspection. No regional wall motion abnormalities seen. Bicuspid aortic valve with severe stenosis. Grossly normal mitral and tricuspid valves. Normal left atrial
appendage. Grade III atheromatous disease of the arch and descending thoracic aorta.
PFT's:
Reports and relevant images were personally reviewed.
-----
Critical Care time 35 mins -- The patient is admitted for acute critical illness for the treatment of vital organ failure and/or prevention of further life-threatening conditions. Total care includes time spent in review of history, physical exam,
medications, hemodynamic/ventilator parameters, laboratory data, imaging and discussion with house staff, pharmacy, respiratory therapy, tattoo technician, and nursing.
Subjective Dataa
Subjective Data
Date of Service:
Date of Service: April 26, 2024
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
Subjective:
No new events ON, stable on RA
Sitting in chair, minimal pain
Remains on insulin gtt
Objective Data
Data Reviewed
Vital Signs / I&O / Oxygen:
Vital Signs
Temp Pulse Resp BP Pulse Ox
98.4 F 90 14 123/59 95
04/26/24 08:00 04/26/24 09:30 04/26/24 09:30 04/26/24 09:00 04/26/24 09:19
Intake and Output
04/25/24 04/26/24 04/27/24
06:59 06:59 06:59
Intake Total 1828.7 / 1840.0 285.9 / 285.9
Output Total 1365 / 1430 65 / 65
Balance 463.7 / 410.0 220.9 / 220.9
SaO2 [CPAP/PSV] 100
SaO2 [SIMV] 96
SaO2 95
Nasal Cannula flow liters per 2
minute
Physical Exam
General: Comfortable and Other (NAD)
HEENT: Normocephalic, Anicteric and Moist Mucous Membranes
Cardiovascular: S1-S2 and Regular Rhythm
Respiratory: Clear, Non-Labored Respirations and Chest Tube
GI: Soft, Non Distended and Non Tender
Neurology: Awake, Alert, Oriented and No Motor Deficits
Skin: Warm, Dry and Good Color
Labs/Micro/Reports
Lab Data
04/26/24 03:45
04/26/24 03:45
Laboratory Results
04/25/24 04/25/24
10:42 14:09
PT 17.8 H
INR 1.48
APTT 38.2 H
pH 7.39 7.41
pCO2 41 38
pO2 99 156 H
HCO3 24.8 24.1
O2 Delivery Level
--- NOTE | 2024-04-26 09:45 | W.PN.CD ---
Today's Communication / Plan
-
cont ASA, statin, metoprolol
trend tele
Impression / Plan
-
63 yo male with severe , who is s/p bio AVR and KATT exclusion by Dr. Baer 04/25. Outpatient algebraist is Dr. Steele at [facility].
Aortic stenosis
- s/p bio AVR and KATT exclusion by Dr. Baer 04/25
- management per CT surgery post-op
-ASA 81mg daily
CAD - prior mid RCA stent 01/2019.
- patent RCA stent and no new disease on cath 01/2024.
-cont ASA, statin, metoprolol
HTN -
- assess to resume ramipril as he recovers from OR
HLD - continue Crestor.
DM - per primary team
Physical Exam
Vital Signs/Labs
Vital Signs
Temp Pulse Resp BP Pulse Ox
98.4 F 90 14 123/59 95
04/26/24 08:00 04/26/24 09:30 04/26/24 09:30 04/26/24 09:00 04/26/24 09:19
04/25/24 04/26/24 04/27/24
06:59 06:59 06:59
Actual Weight 82.3 kg 85.4 kg
04/26/24 03:45
04/26/24 03:45
PT 17.8 Sec (11.4-14.6) H 04/25/24 10:42
INR 1.48 04/25/24 10:42
APTT 38.2 Sec (23.4-35.0) H 04/25/24 10:42
Magnesium 2.1 mg/dl (1.6-2.3) 04/26/24 03:45
Physical Exam
Constitutional: No acute distress and Comfortable
EENT: Moist mucous membranes
Cardiovascular: Rhythm & rate is regular, Pedal edema is absent, JVD pressure is normal and Systolic murmur absent
Respiratory: Respiratory effort normal and Lungs clear to auscul.
Neuro/Psych: AO x 3
Data Reviewed
-
Date of Service: April 26, 2024
EKG: Other (Tele: SR 80s)
Labs: Labs Reviewed by me
[2024-04-26 10:07] LABS: Glucose - Point of Care 119 mg/dl (70-99)
[2024-04-26] MEDS: NOVOLOG FLEXPEN 4 UNITS SC (10:43)
[2024-04-26] MEDS: LOPRESSOR 12.5 MG PO ×2 (10:43→20:29)
[2024-04-26] MEDS: NSS IV (10:56)
[2024-04-26 12:05] LABS: Glucose - Point of Care 83 mg/dl (70-99)
--- NOTE | 2024-04-26 12:15 | PTCARENOTE ---
VS obtained, assessment stable. Patient remains oob in chair - stood to reposition, standing ROM performed. at bedside.
[2024-04-26] MEDS: NOVOLOG FLEXPEN SC (13:24)
[2024-04-26] MEDS: FERRLECIT 110 MG IV (13:56)
[2024-04-26 14:01] LABS: Glucose - Point of Care 78 mg/dl (70-99)
[2024-04-26] MEDS: PEPCID 20 MG PO ×2 (15:27→20:29)
--- NOTE | 2024-04-26 15:30 | W.PN.ANS.POP ---
Anesthesia Post Operative
- Anesthesia Post Op Note
Vital Signs Stable-See Nursing Note: Yes
Airway Patent: Yes
Adequate Pain Control: Yes
Change in Mental Status: No
Current Postoperative Nausea & Vomiting: No
Anesthesia Complications: No
General Anesthetic Recall: No
Unplanned Admission: No
Post Op Hydration Adequate: Yes
[2024-04-26 16:05] LABS: Glucose - Point of Care 126 mg/dl (70-99)
[2024-04-26] MEDS: FLEXERIL 5 MG PO ×2 (16:05→21:10)
--- NOTE | 2024-04-26 16:09 | PTCARENOTE ---
VS obtained, assessment unchanged. Patient remains oob in chair, perusing menu for dinner.
[2024-04-26] MEDS: NOVOLOG FLEXPEN 2 UNITS SC (16:47)
[2024-04-26 17:57] LABS: Glucose - Point of Care 162 mg/dl (70-99)
[2024-04-26 18:58] LABS: Glucose - Point of Care 181 mg/dl (70-99)
[2024-04-26 20:13] LABS: Glucose - Point of Care 165 mg/dl (70-99)
--- NOTE | 2024-04-26 21:30 | PTCARENOTE ---
Report from MINDY Ravi. Walking rounds done. Pt helped from chair to bed. VS done. See flowsheet. Pt awake, oriented x 4. Speech clear. Sats in bed 92-94%. 1L/NC. Sats 95-98%. BBS present . Decreased to B bases. CDB encouraged as pt tolerates. Pt
with increased pain, moderate to severe. C/o pain to B upper back, posterior neck. Roxicodone 5 mg given at 2016. Pt with continued pain. Dilaudid 0.25 mg IV at 2023. Baldev TERESA notified of pain. At bedside. Flexeril 5 mg ordered and given at 2109.
Pt in ST-SR, BBB. Elevated BP at 1999. Scheduled meds given. Audible heart tones. V wire insulated. For pulse and wound assessments, see flowsheets. Belly soft, nontender. Hypoactive bowel sounds x 4. Indwelling connell catheter draining clear, yellow
urine. Glycemic protocol maintained.
Repeat Dilaudid 0.25 mg IV given at 2246 for continued upper [place], posterior neck pain. Ongoing plan of care.
[2024-04-26 22:18] LABS: Glucose - Point of Care 132 mg/dl (70-99)
[2024-04-27] VITALS (23 sets, daily range): BP systolic 102–158; BP diastolic 54–101; BMI 29.9
[2024-04-27] MEDS: ROXICODONE 5 MG PO ×6 (00:20→23:36)
[2024-04-27 00:28] LABS: Glucose - Point of Care 114 mg/dl (70-99)
--- NOTE | 2024-04-27 00:30 | PTCARENOTE ---
Pt c/o new R upper arm pain. BP cuff switched to L arm. Palpable radial pulse. R arm warm, pink, good cap refill < 2 seconds. No edema of R arm. No redness, warmth. MALICK De Paz made aware. Roxicodone 5 mg given at 0020.
[2024-04-27 01:46] LABS: Glucose - Point of Care 86 mg/dl (70-99)
[2024-04-27] MEDS: DILAUDID 0.5 MG IV (01:53)
--- NOTE | 2024-04-27 02:35 | PTCARENOTE ---
Pt awoke with 8/10 severe upper back pain, posterior neck pain. Dilaudid 0.5 mg IV given. Talked with MALICK De Paz. K Pad ordered and applied to upper back and neck at 0230, mod-high heat, cycle q 30 minutes. Ongoing pain and skin assessment. Pt fell
asleep.
[2024-04-27 03:07] LABS: Hemoglobin 10.6 g/dL (13.0-18.0); Mean Corp Hgb Conc. 35.3 g/dL (33.0-37.0); Mean Corpuscular Hgb 29.6 pg (27.0-31.0); Mean Corpuscular Volume 83.8 fL (80.0-94.0); Platelet Count 145 10^3/uL (130-400); Red Blood Cell Count 3.58 10^6/uL (4.70-6.10); Red Cell Dist. Width 12.7 % (11.5-14.5); White Blood Cell Count 10.1 10^3/uL (4.8-10.8)
[2024-04-27 03:09] LABS: Glucose - Point of Care 108 mg/dl (70-99)
[2024-04-27 03:27] LABS: Blood Urea Nitrogen 20 mg/dl (9-20); Calcium 8.3 mg/dl (8.4-10.2); Carbon Dioxide 24 mmol/L (22-30); Chloride 103 mmol/L (98-107); Estimated Creatinine Clearance 98 ml/min; Glucose 109 mg/dl (70-99); Magnesium 1.9 mg/dl (1.6-2.3); Potassium 4.5 mmol/L (3.5-5.1); Sodium 135 mmol/L (135-145); eGFR > 60.00
[2024-04-27 04:34] LABS: Glucose - Point of Care 109 mg/dl (70-99)
--- NOTE | 2024-04-27 05:12 | W.PN.CT ---
Today's Communication / Plan
-
-pod #2
-no significant overnight events
-required additional pain medicine
-CT output: 2 meds 130/290 in 12 /24 hrs
-continue insulin IV
-current meds : Crestor, amio, asa, IV iron, metoprolol 12.5 mg, Protonix
-encourage IS, OOB
Assessment / Plan
-
- Severe symptomatic AV stenosis with bicuspid morphology- s/p Surgical aortic valve replacement [25 mm bioprosthesis Cardenas Inspiris Resilia]; LAAE [35 mm clip] by Dr. Baer on 04/25/24, pod #2
- Intraop JOHN: LVEF preop was 60% and postop 60-65% with no wma. There was no paravalvular leak, the mean gradient across the new bioprosthesis was 3 mmHg. There was normal leaflet excursion of the valve.
- Recent STEMI requiring PCI and stenting of RCA 01/2019
- Diabetes melitis II, on insulin
- Asthma
- Depression
- History of PUD with GI bleed
- Hypertension
- Hyperlipidemia
- b/l shoulder surgery
- Acute postop blood loss anemia- stable, no transfusion
- Acute postop atelectasis
- Acute postop hypovolemia with subsequent hypervolemia
Subjective
-
Date of Service: April 27, 2024
Objective Data
-
Lab Results
04/27/24 02:53
04/27/24 02:53
PT 17.8 Sec (11.4-14.6) H 04/25/24 10:42
INR 1.48 04/25/24 10:42
APTT 38.2 Sec (23.4-35.0) H 04/25/24 10:42
Vital Signs
Vital Signs
Temp Pulse Resp BP Pulse Ox
98.8 F 104 16 117/58 97
04/27/24 02:00 04/27/24 05:00 04/27/24 05:00 04/27/24 05:00 04/27/24 05:00
CT Intake/Output/Weight
04/26/24 04/26/24 04/27/24
06:59 18:59 06:59
Intake Total 510.5 / 1840.0 789.9 / 908.9 119.0 / 908.9
Output Total 420 / 1430 455 / 945 490 / 945
Balance 90.5 / 410.0 334.9 / -36.1 -371.0 / -36.1
SaO2: 97
Physical Exam
-
General: Awake, Oriented and AOx3
Cardiovascular: Regular rate & rhythm and No Murmurs
Respiratory: Clear and Equal
Sternum: Stable
Incision: Clean, Dry and Intact
Extremities: No Edema and No Erythema
Data Reviewed
-
Lab Results: Results Reviewed
Medications: Active Meds Reviewed
Chest X-Ray: Report Reviewed
ECG: Report Reviewed
[2024-04-27 05:18] LABS: Glucose - Point of Care 100 mg/dl (70-99)
[2024-04-27] MEDS: FLEXERIL 5 MG PO ×2 (05:27→16:13)
[2024-04-27] MEDS: TYLENOL 1000 MG PO ×3 (05:27→21:09)
--- NOTE | 2024-04-27 05:33 | PTCARENOTE ---
Addendum entered by Saw Guzman RN 04/27/24 07:10:
Pt with continued severe pain 7/10 to upper back/posterior neck. Roxicodone 5 mg given at 0600.
Original Note:
Pt with 10/10 pain to posterior neck, pain to upper back-moderate. Flexeril 5 mg given, along with scheduled Tylenol. CXR done.
[2024-04-27] MEDS: ZOFRAN 4 MG IV (05:48)
[2024-04-27] MEDS: FLOVENT 44 MCG INHALER 2 PUFF INH ×2 (07:17→19:55)
[2024-04-27 07:25] LABS: Glucose - Point of Care 119 mg/dl (70-99)
--- NOTE | 2024-04-27 07:51 | PTCARENOTE ---
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 NSR-ST via cm, SaO2 @ 96% on RA. RIJ Cordis w/kvo infusing. Epicardial V-wire, insulated to
chest wall. Mediastinal chest tubes x 2, Y-connected, to -20cm suction with no air leak appreciated. Henson catheter draining clear, yellow urine - d/c'd as ordered. All procedural sites stable. Insulin infusing peripherally, titrating per glycemic
protocol. Patient updated to plan of care for the day, in agreement. See work list for full assessment and interventions performed.
[2024-04-27] MEDS: LIDOCAINE 4% PATCH 1 PATCH TOPICAL (08:32)
[2024-04-27] MEDS: BACTROBAN 2% OINTMENT 1 APPLIC NASAL ×2 (08:33→21:09)
[2024-04-27] MEDS: LOPRESSOR 25 MG PO (08:35)
[2024-04-27] MEDS: LOW STRENGTH ASPIRIN 81 MG PO (08:35)
[2024-04-27] MEDS: LASIX 40 MG IV ×2 (08:35→17:02)
[2024-04-27] MEDS: PROTONIX 40 MG PO (08:35)
[2024-04-27] MEDS: MAGNESIUM OXIDE 500 MG PO ×2 (08:35→21:08)
[2024-04-27] MEDS: NEURONTIN 100 MG PO ×3 (08:36→21:08)
[2024-04-27] MEDS: PACERONE 200 MG PO ×3 (08:36→21:08)
[2024-04-27] MEDS: PEPCID 20 MG PO ×2 (08:36→21:08)
[2024-04-27] MEDS: MUCINEX 600 MG PO ×2 (08:36→21:08)
[2024-04-27] MEDS: SENOKOT-S 1 TABLET PO ×2 (08:36→21:08)
[2024-04-27] MEDS: MYLICON 80 MG PO ×4 (08:36→21:09)
[2024-04-27 09:19] LABS: Glucose - Point of Care 100 mg/dl (70-99)
[2024-04-27] MEDS: NSS 500 IV (09:36)
[2024-04-27] MEDS: NOVOLIN R INSULIN INFUSION 100 IV (09:37)
[2024-04-27] MEDS: NOVOLOG FLEXPEN 4 UNITS SC (09:37)
[2024-04-27] MEDS: LANTUS 0.15 UNITS SC (10:53)
--- NOTE | 2024-04-27 11:30 | W.PN.INTV ---
Today's Communication / Plan
Recommendations
Doing well, stable on RA
Back pain noted overnight, likely discontinuation of chest tube may help
Otherwise off gtts, encouraged OOB/PT
Transfer process initiated to [facility], we will sign off upon transfer
Assessment
-
Patient is a 63-year-old male with previous history of aortic valve stenosis with significant decline in exercise capacity over the past 6 months presenting for elective surgical intervention. He had noted intermittent left-sided chest pain,
chronic fatigue with syncopal episodes. Underwent surgical aortic valve replacement on 04/25/2024 and postoperatively transferred to CVICU for further management.
Severe s/p AVR 04/25/24
Perioperative mechanical ventilation
BAHENA
Conditions present prior to admission
Recent STEMI requiring PCI and stenting
IDDM
Asthma
Depression
History of PUD with GI bleed
Hypertension
Hyperlipidemia
Shoulder surgery
Former smoker
RML pulm nodule, 8mm
Plan
S/p AVR POD #2
Titrated off pressors per protocol
ECHO reviewed with normal function
PA catheter discontinued
Management of chest tubes per primary service, likely to be discontinued today
Pain control
RASS goal of 0 to -1
Intubated for procedure, extubated and tolerated well
ABG(s) reviewed/adequate
CXR with stable postop changes
Maintain supplement oxygen as needed
No prior history of pulmonary disease, was a former smoker quit >[address] with 8mm nodule RML--will need to be followed as OP
No prior PFTs for review
Can add nebulizers if needed
Aspiration precautions
Encouraged incentive spirometry, OOB/ambulation/early mobility
Advance diet as tolerated following extubation
GI prophylaxis if indicated for mechanical ventilation >48 hours
Monitor critical I/O's
Henson/chest tube output
Hb/platelets postoperatively stable
Trend CBC for now
Can transfuse if indicated for Hb <7, plt <50 in surgical patients
DVT prophylaxis including SCDs
Insulin protocol initiated and off
Transition to SQ/off as indicated per team
Transfer process initiated to tele
Diagnostic Data
Chest X-Ray: 04/25/24- Lines/Tubes/Devices: Endotracheal tube in satisfactory position. Right IJ [place] Robi catheter with tip in the region of the main pulmonary artery. Couple of mediastinal drains.
Lungs/Pleura: No focal airspace disease. No pleural effusions or pneumothorax.
CT Scan: CHEST 03/19/24- Incidental peripheral lateral segment right middle lobe 8 mm groundglass opacity. Cholelithiasis. No CT evidence of acute cholecystitis. No bile duct dilatation.
Minor proximal sigmoid and descending colon diverticulosis. No evidence of bowel obstruction. Nonspecific right upper quadrant fluid/soft tissue stranding situated between the duodenum and proximal transverse colon, as described. Exact etiology
uncertain. Possibly related to inflammatory changes of duodenitis or diverticulitis. Recommend correlation with clinical exam to assess for possibility right upper quadrant pain.
Echo: 04/25/24- Normal biventricular systolic function with LVEF of 60-65% by visual inspection. No regional wall motion abnormalities seen. Bicuspid aortic valve with severe stenosis. Grossly normal mitral and tricuspid valves. Normal left atrial
appendage. Grade III atheromatous disease of the arch and descending thoracic aorta.
PFT's:
Reports and relevant images were personally reviewed.
-----
Critical Care time 31 mins -- The patient is admitted for acute critical illness for the treatment of vital organ failure and/or prevention of further life-threatening conditions. Total care includes time spent in review of history, physical exam,
medications, hemodynamic/ventilator parameters, laboratory data, imaging and discussion with house staff, pharmacy, respiratory therapy, associate creative director, and nursing.
Subjective Dataa
Subjective Data
Date of Service:
Date of Service: April 27, 2024
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
Subjective:
Doing well today, stable on RA
Had a rough night of sleep due to 05/01 back pain
Objective Data
Data Reviewed
Vital Signs / I&O / Oxygen:
Vital Signs
Temp Pulse Resp BP Pulse Ox
98 F 85 14 114/101 96
04/27/24 07:25 04/27/24 11:00 04/27/24 11:00 04/27/24 10:00 04/27/24 07:45
Intake and Output
04/26/24 04/27/24 04/28/24
06:59 06:59 06:59
Intake Total 1828.7 / 1840.0 931.5 / 942.8 308.5 / 308.5
Output Total 1365 / 1430 1050 / 1080 670 / 670
Balance 463.7 / 410.0 -118.5 / -137.2 -361.5 / -361.5
SaO2 [CPAP/PSV] 100
SaO2 [SIMV] 96
SaO2 96
Nasal Cannula flow liters per 2
minute
Physical Exam
General: Comfortable and Other (NAD)
HEENT: Normocephalic, Anicteric and Moist Mucous Membranes
Cardiovascular: S1-S2 and Regular Rhythm
Respiratory: Clear, Non-Labored Respirations and Chest Tube
GI: Soft, Non Distended and Non Tender
Neurology: Awake, Alert, Oriented and No Motor Deficits
Skin: Warm, Dry and Good Color
Labs/Micro/Reports
Lab Data
04/27/24 02:53
04/27/24 02:53
[2024-04-27 11:41] LABS: Glucose - Point of Care 174 mg/dl (70-99)
--- NOTE | 2024-04-27 11:45 | PTCARENOTE ---
VS obtained, assessment stable. Patient remains oob in chair, dozing.
[2024-04-27 12:34] LABS: Glucose - Point of Care 172 mg/dl (70-99)
[2024-04-27] MEDS: NOVOLOG FLEXPEN 3 UNITS SC ×2 (13:22→17:48)
[2024-04-27] MEDS: FERRLECIT 110 MG IV (13:22)
[2024-04-27] MEDS: NOVOLOG FLEXPEN-MODERATE RESISTANCE 1 UNITS SC ×2 (13:23→17:48)
--- NOTE | 2024-04-27 15:37 | PTCARENOTE ---
VS obtained, stable. Patient oob in chair, medicated for pain. at bedside for visit.
--- NOTE | 2024-04-27 17:30 | PTCARENOTE ---
Epicardial V-wire d/c'd by BETZY Gagan. Bedrest maintained x 1 hour, VS obtained per protocol. At one hour, chest tubes d/c'd as ordered. Patient tolerated well. Assisted back oob to chair.
[2024-04-27] MEDS: DILAUDID 0.25 MG IV (17:43)
[2024-04-27 17:46] LABS: Glucose - Point of Care 179 mg/dl (70-99)
--- NOTE | 2024-04-27 18:11 | W.PN.CD ---
Today's Communication / Plan
-
cont ASA, statin, metoprolol
trend tele
Impression / Plan
-
63 yo male with severe , who is s/p bio AVR and KATT exclusion by Dr. Baer 04/25. Outpatient supervisor shuttle veneering is Dr. Steele at [facility].
Aortic stenosis
- s/p bio AVR and KATT exclusion by Dr. Baer 04/25
- management per CT surgery post-op
-ASA 81mg daily
CAD - prior mid RCA stent 01/2019.
- patent RCA stent and no new disease on cath 01/2024.
-cont ASA, statin, metoprolol
HTN -
- assess to resume ramipril as he recovers from OR
HLD - continue Crestor.
DM - per primary team
Physical Exam
Vital Signs/Labs
Vital Signs
Temp Pulse Resp BP Pulse Ox
97.9 F 101 14 151/71 96
04/27/24 15:37 04/27/24 17:30 04/27/24 15:37 04/27/24 17:15 04/27/24 15:37
04/26/24 04/27/24 04/28/24
06:59 06:59 06:59
Actual Weight 85.4 kg 86.4 kg
04/27/24 02:53
04/27/24 02:53
PT 17.8 Sec (11.4-14.6) H 04/25/24 10:42
INR 1.48 04/25/24 10:42
APTT 38.2 Sec (23.4-35.0) H 04/25/24 10:42
Magnesium 1.9 mg/dl (1.6-2.3) 04/27/24 02:53
Physical Exam
Constitutional: No acute distress
EENT: Moist mucous membranes
Cardiovascular: Rhythm & rate is regular, JVD pressure is normal, Systolic murmur absent and Pedal edema present
Respiratory: Respiratory effort normal and Lungs clear to auscul.
Neuro/Psych: AO x 3
Data Reviewed
-
Date of Service: April 27, 2024
EKG: Other (Tele: NSR [id number])
Labs: Labs Reviewed by me
[2024-04-27] MEDS: CRESTOR 20 MG PO (21:08)
[2024-04-27] MEDS: LOPRESSOR 50 MG PO (21:08)
--- NOTE | 2024-04-27 21:30 | PTCARENOTE ---
PT AAOx4 w/ complaints of pain in sternum and shoulders. NS/ST VSS, RA decreased in bases GI and benign, all surgical sights CDI RIJ cordis and PIV wnl. See worklist for detailed assessment
[2024-04-28] VITALS (17 sets, daily range): BP systolic 90–132; BP diastolic 49–71; PULSE 85; O2SAT 96; BMI 29.4
--- NOTE | 2024-04-28 05:02 | W.PN.CT ---
Today's Communication / Plan
-
-pod #3
-no significant overnight events
-Henson out yesterday. Lasix started.
-V wire/CTs out yesterday
-current meds : Crestor, amio, asa, IV iron, metoprolol increased to 50 mg, Protonix
-encourage IS, OOB
Assessment / Plan
-
- Severe symptomatic AV stenosis with bicuspid morphology- s/p Surgical aortic valve replacement [25 mm bioprosthesis Cardenas Inspiris Resilia]; LAAE [35 mm clip] by Dr. Baer on 04/25/24, pod #3
- Intraop JOHN: LVEF preop was 60% and postop 60-65% with no wma. There was no paravalvular leak, the mean gradient across the new bioprosthesis was 3 mmHg. There was normal leaflet excursion of the valve.
- Recent STEMI requiring PCI and stenting of RCA 01/2019
- Diabetes melitis II, on insulin
- Asthma
- Depression
- History of PUD with GI bleed
- Hypertension
- Hyperlipidemia
- b/l shoulder surgery
- Acute postop blood loss anemia- stable, no transfusion
- Acute postop atelectasis
- Acute postop hypovolemia with subsequent hypervolemia
Subjective
Procedure
s/p Surgical aortic valve replacement [25 mm bioprosthesis Cardenas Inspiris Resilia]; LAAE [35 mm clip] by Dr. Baer on 04/25/24
-
Date of Service: April 28, 2024
Objective Data
-
PT 17.8 Sec (11.4-14.6) H 04/25/24 10:42
INR 1.48 04/25/24 10:42
APTT 38.2 Sec (23.4-35.0) H 04/25/24 10:42
Vital Signs
Vital Signs
Temp Pulse Resp BP Pulse Ox
98.2 F 106 18 122/60 93
04/27/24 21:25 04/27/24 21:08 04/27/24 21:25 04/27/24 21:08 04/27/24 19:59
CT Intake/Output/Weight
04/27/24 04/27/24 04/28/24
06:59 18:59 06:59
Intake Total 141.6 / 942.8 618.5 / 618.5
Output Total 595 / 1080 1680 / 1680
Balance -453.4 / -137.2 -1061.5 / -1061.5
SaO2: 93
Physical Exam
-
General: Awake, Oriented and AOx3
Cardiovascular: Regular rate & rhythm, No Murmurs and No Rub
Respiratory: Clear and Equal
Sternum: Stable
Incision: Clean, Dry and Intact
Extremities: No Edema
Data Reviewed
-
Lab Results: Results Reviewed
Medications: Active Meds Reviewed
Chest X-Ray: Report Reviewed
ECG: Report Reviewed
[2024-04-28 05:10] LABS: Hemoglobin 11.2 g/dL (13.0-18.0); Mean Corpuscular Hgb 30.3 pg (27.0-31.0); Mean Corpuscular Volume 86.5 fL (80.0-94.0); Mean Platelet Volume 10.4 fL (7.4-10.4); Platelet Count 152 10^3/uL (130-400); Red Cell Dist. Width 12.3 % (11.5-14.5); White Blood Cell Count 9.5 10^3/uL (4.8-10.8)
[2024-04-28 05:42] LABS: Blood Urea Nitrogen 17 mg/dl (9-20); Calcium 8.3 mg/dl (8.4-10.2); Carbon Dioxide 24 mmol/L (22-30); Chloride 98 mmol/L (98-107); Estimated Creatinine Clearance 110 ml/min; Glucose 232 mg/dl (70-99); Magnesium 1.9 mg/dl (1.6-2.3); Potassium 4.8 mmol/L (3.5-5.1); Sodium 134 mmol/L (135-145); eGFR > 60.00
--- NOTE | 2024-04-28 07:32 | PN.DE.MGMTRT ---
Insulin Management
- -
04/28/2024: Diabetes management F/U:
63 year old male admitted for elective AVR. PMH: CAD, VT s/p cath, HTN, HLD, Asthma, h/o GIB/PUD, Insulin dependent T2DM. A1C 7.4%, Cr 0.8, eGFR >60
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 Uses CGM-Tommie 2 for glucose monitoring at home. Routinely see Endo in [place].
Pt awake, A/O X3, sitting up in chair, offers no complaints, able to discuss diabetes mgt.
Transitioned off glycemic protocol 04/27@ 9am, received Lantus 15 units prior to stopping drip. Did not receive any Lantus @ HS, fasting glucose 232 this AM.
Premeal glucose range has been 170's since transitioning off drip. He is ordered NovoLog 3 units AC, has been increased to 5 units by CVAPP.
Will switch Lantus adm time to HS at 20 units @ HS. Change to low corrective insulin. Cont current ordered dose of AC NovoLog 5 units.
Will follow and adjust insulin dose if needed.
Discussed with pt and Nurse at bedside.
Diabetes History
- -
Type of Diabetes: 2 requiring insulin
Pre-Admission Diabetes Regimen
04/28/24
04:59
Creatinine 0.7
Lab Results
Hemoglobin A1c 7.4 % (4.0-5.6) H 04/09/24 08:40
Insulin Pump Settings
IP Diabetes Regimen
04/27/24 04/27/24 04/27/24
09:18 11:36 12:33
Glucose
POC Glucose 100 H 174 H 172 H
04/27/24 04/28/24
17:45 04:59
Glucose 232 H
POC Glucose 179 H
Meal type: Dinner
Meal type: Lunch
Meal type: Breakfast
Amount consumed: 100%
Amount consumed: 65%
Amount consumed: 100%
Patient Education
--- NOTE | 2024-04-28 07:41 | W.PN.CD ---
Today's Communication / Plan
-
Ambulate.
Incentive spirometry.
Agree with diuresis.
Impression / Plan
-
Impression/Plan: 63 y/o male with IDDM, HTN, HLD, CAD s/p PCI and severe admitted for elective SAVR and KATT exclusion by Dr. Baer 04/25/2024.
#Severe aortic stenosis
-Chronic.
-S/P #25 Cardenas Inspiris Resilia SAVR (Serial #[id number]) with Dr. Baer, 04/25/2024.
-S/P #35 Atriclip (Serial # [id number]).
-S/P rigid sternal fixation.
-Continue amiodarone, aspirin, metoprolol.
-Encourage incentive spirometry/ambulation.
-Chest tube/pain control per CT surgery.
#CAD
-Prior mid RCA stent 01/2019.
-RCA stent patent with no new disease on cath 01/2024.
-Continue ASA, rosuvastatin, metoprolol.
#HTN
-Chronic.
-Assess to resume ramipril as he recovers from OR.
#HLD
-Chronic, stable.
-Continue rosuvastatin.
#IDDM
-Chronic, stable.
-Per primary team.
Outpatient sorter pricer is Dr. Steele at [facility]
Subjective/Interval History:
Weight is down 0.4 kg, still up 2.7 kg from baseline.
Pain is controlled.
DATA:
Cardiac Catheterization/PCI, 01/20/2019:
CONCLUSIONS
1. Acute ST segment elevation myocardial infarction with successful stenting of the right coronary artery with a 3.0 x 28 mm Promus stent that was postdilated with a 3.0 mm noncompliant balloon
2. Moderate aortic stenosis
3. Preserved LV systolic function
Transthoracic Echocardiogram, 11/02/2023:
CONCLUSIONS
Normal left ventricular size, increased circumferential wall thickness and
systolic function.
No regional wall motion abnormalities are seen.
The ejection fraction is estimated at 65 %.
Grade 1 diastolic dysfunction.
Normal right ventricular size and function.
Normal left atrium.
Normal right atrium.
Structurally normal mitral valve without significant stenosis / mild
regurgitation.
Structurally abnormal aortic valve, calcified and restricted with significant
aortic stenosis. Peak gradient 77 mmHg/mean gradient 51 mmHg, GROVER = .58 sq cm.
Structurally normal tricuspid valve without significant stenosis w/ mild
regurgitation.
Estimated pulmonary artery pressure not obtained.
Structurally normal pulmonic valve without significant stenosis or
regurgitation.
Normal pericardium without effusion.
Normal aortic root.
IVC demonstrates normal respiratory variation.
Intraprocedural JOHN, 04/25/2024:
CONCLUSIONS
Normal biventricular systolic function with LVEF of 60-65% by visual
inspection. No regional wall motion abnormalities seen.
Bicuspid aortic valve with severe stenosis.
Grossly normal mitral and tricuspid valves.
Normal left atrial appendage.
Grade III atheromatous disease of the arch and descending thoracic aorta.
S/P AVR with size 25 bioprosthetic valve; KATT exclusion with clip.
The bioprosthetic valve is well-seated with no paravalvular leak seen. The
mean gradient is 3 mmHg with a cardiac index of 2.4. The left atrial appendage
is no longer visualized, and color flow Doppler confirms the absence of flow.
Otherwise unchanged exam.
Physical Exam
Vital Signs/Labs
Vital Signs
Temp Pulse Resp BP Pulse Ox
36.8 C 100 18 117/64 93
04/27/24 21:25 04/28/24 07:00 04/27/24 21:25 04/28/24 04:58 04/28/24 05:04
04/26/24 04/27/24 04/28/24
11:59 11:59 11:59
Actual Weight 85.4 kg 86.4 kg 85 kg
04/28/24 04:59
04/28/24 04:59
PT 17.8 Sec (11.4-14.6) H 04/25/24 10:42
INR 1.48 04/25/24 10:42
APTT 38.2 Sec (23.4-35.0) H 04/25/24 10:42
Magnesium 1.9 mg/dl (1.6-2.3) 04/28/24 04:59
Physical Exam
Constitutional: No acute distress and Comfortable
EENT: Anicteric and Moist mucous membranes
Cardiovascular: Rhythm & rate is regular, Pedal edema is absent, JVD pressure is normal, S1S2 is normal and Murmur/rub/gallop absent
Respiratory: Respiratory effort normal and Other (Decreased at bases.)
GI: Soft, Distention absent, Flat, Non tender and Normal bowel sounds
Neuro/Psych: AO x 3
Data Reviewed
-
Date of Service: April 28, 2024
Medical Decision Making: Reviewed Test Results and Independent Historian Assessment
EKG: Tracing Personally Visualized and interpreted and Report Reviewed by me
Echo: Tracing Personally Visualized and interpreted and Report Reviewed by me
X-Ray/CT/US/MRI/NUC/PET: Image Personally Visualized and interpreted and Report Reviewed by me
Medical Tests (PFT, Pathology etc): Report Reviewed by me
Labs: Labs Reviewed by me
[2024-04-28] MEDS: FLOVENT 44 MCG INHALER 2 PUFF INH ×2 (08:11→19:13)
[2024-04-28] MEDS: LASIX 40 MG IV (08:26)
[2024-04-28] MEDS: TYLENOL 1000 MG PO ×3 (08:26→21:50)
[2024-04-28] MEDS: ROXICODONE 5 MG PO ×2 (08:27→19:20)
[2024-04-28] MEDS: LIDOCAINE 4% PATCH 1 PATCH TOPICAL ×2 (08:27→08:50)
[2024-04-28] MEDS: PACERONE 200 MG PO ×2 (08:27→15:18)
[2024-04-28] MEDS: LOW STRENGTH ASPIRIN 81 MG PO (08:27)
[2024-04-28] MEDS: PROTONIX 40 MG PO (08:27)
[2024-04-28] MEDS: MAGNESIUM OXIDE 500 MG PO ×2 (08:28→19:18)
[2024-04-28] MEDS: MUCINEX 600 MG PO ×2 (08:28→19:18)
[2024-04-28] MEDS: FLUSH (NSS) 1 FLUSH IV (08:28)
[2024-04-28] MEDS: SENOKOT-S 1 TABLET PO ×2 (08:28→19:18)
[2024-04-28] MEDS: LOPRESSOR 50 MG PO (08:28)
[2024-04-28] MEDS: LANTUS 0.15 UNITS SC (08:28)
[2024-04-28] MEDS: BACTROBAN 2% OINTMENT 1 APPLIC NASAL ×2 (08:29→19:23)
--- NOTE | 2024-04-28 08:30 | PTCARENOTE ---
Assumed care of patient. Walking rounds completed. Pt assessed while he was sitting in the chair. Pt alert and oriented x4. Rates back pain 5/10-see MAR. Denies nausea and shortness of breath. BUCK with equal strength throughout. NSR-ST on tele with
rates in the 90s-100s. BP 130/64. Bilateral radial and DP pulses palpable. +1 edema to bilateral lower extremities. POX 95% on RA. Lungs diminished in the bases. IS encouraged-1250mL achieved. Occasional moist nonproductive cough noted. Abdomen
soft, round, nontender. +BS. No BM after surgery yet. Tolerating diet. Reports no issues voiding. 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 Old chest tube sites covered, dressing CDI. Right IJ cordis intact, Right hand PIV intact. See MAR
for medication administration. See worklist for complete nursing assessment. Plan of care reviewed and pt in agreement.
[2024-04-28 08:36] LABS: Glucose - Point of Care 250 mg/dl (70-99)
[2024-04-28] MEDS: NEURONTIN PO (08:45)
[2024-04-28] MEDS: NOVOLOG FLEXPEN-MODERATE RESISTANCE SC (08:45)
[2024-04-28] MEDS: FLEXERIL 5 MG PO ×2 (08:50→19:20)
[2024-04-28] MEDS: NEURONTIN 200 MG PO ×3 (08:50→21:49)
[2024-04-28] MEDS: NSS IV (09:16)
[2024-04-28] MEDS: NOVOLOG FLEXPEN 5 UNITS SC ×3 (09:29→18:24)
[2024-04-28] MEDS: NOVOLOG FLEXPEN-LOW RESISTANCE 3 UNITS SC (09:30)
[2024-04-28 09:33] LABS: Glucose - Point of Care 252 mg/dl (70-99)
--- NOTE | 2024-04-28 11:51 | CM ---
dc plans remain home when medically stable and f/u with HR VN.
--- NOTE | 2024-04-28 12:00 | PTCARENOTE ---
Pt received from dayshift RN; AAOx3, responds to spontaneous stimulation and follows commands; NSR on monitor; Trace B/L LE edema; DP and radial pulses present; Lungs diminished at bases; SpO2 96-97% on RA; IS 1250 ml; Occasional cough; Urinating
clear yellow urine; Surgical sites intact; RIJ Cordis and PIVx1 present; Patient denies any pain at this time; See nursing documentation for further details.
[2024-04-28 12:43] LABS: Glucose - Point of Care 310 mg/dl (70-99)
[2024-04-28] MEDS: NOVOLOG FLEXPEN-LOW RESISTANCE 4 UNITS SC (12:46)
[2024-04-28] MEDS: FERRLECIT 110 MG IV (13:41)
--- NOTE | 2024-04-28 15:55 | PTCARENOTE ---
RIJ Cordis removed - no bleeding or complications noted at the site; Patient denies any pain at this time; Ambulating in hallways with RN and tolerating activity.
[2024-04-28 17:23] LABS: Glucose - Point of Care 198 mg/dl (70-99)
[2024-04-28] MEDS: NOVOLOG FLEXPEN-LOW RESISTANCE 1 UNITS SC (18:24)
--- NOTE | 2024-04-28 18:41 | PTCARENOTE ---
Patient notified RN at 1800 that he has recently noticed numbness in lateral aspect of right thigh when he was washing up with CHG cloth wipes in bathroom; VSS; No other neurological deficits noted; IRINA Garcia notified and aware - no further
orders at this time.
[2024-04-28] MEDS: TOPROL XL 75 MG PO (19:18)
[2024-04-28] MEDS: LOPRESSOR 5 MG IV (20:50)
[2024-04-28] MEDS: CORDARONE 103 MG IV ×2 (21:07→21:59)
[2024-04-28] MEDS: MAGNESIUM SULFATE 102 GRAMS IV (21:09)
--- NOTE | 2024-04-28 21:12 | PTCARENOTE ---
Patient went into sudden burst of afib with RVR while sleeping; Patient states he initially woke up with chest pain but only feels heart racing at this point - denies dizziness, lightheadedness, or SOB at this time; Vital signs stable; EKG taken;
[facility] Ed B. notified and aware - IV Lopressor 5 mg given, IV Amiodarone bolus infusing, and IV Magnesium 1 gm infusing; [facility] Ed B. now at bedside.
[2024-04-28] MEDS: CRESTOR 20 MG PO (21:49)
[2024-04-28] MEDS: LANTUS 0.2 UNITS SC (21:49)
[2024-04-28 21:50] LABS: Glucose - Point of Care 212 mg/dl (70-99)
[2024-04-28] MEDS: PACERONE 400 MG PO (22:19)
--- NOTE | 2024-04-28 22:21 | PTCARENOTE ---
Another bolus of Amiodarone ordered and given; Patient remains in afib with RVR but HR down from 130's-140's to 100's-120's; PO Amiodarone given. No further orders at this time.
--- NOTE | 2024-04-28 22:27 | PTCARENOTE ---
Patient now back into NSR with HR in 80's
--- NOTE | 2024-04-28 23:58 | PTCARENOTE ---
Assumed pt care. Walking rounds completed with previous RN. Pt resting in bed at time of assessment. 2L NC - POX 96%, anterior/lateral BS clear/diminished in B/L bases. NSR with PAC's on telemetry, heart tones normal, trace LE edema noted, pulses
palpable b/l. BS audible x 4, ABD soft/non-tender. 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 PIV x 2 present & patent. VS obtained.
[2024-04-29] VITALS (8 sets, daily range): BP systolic 93–149; BP diastolic 44–69; BMI 29.4
--- NOTE | 2024-04-29 03:24 | PTCARENOTE ---
Pt asleep throughout night. VS obtained. Labs drawn & sent. Pt remains in NSR with intermittent PACs. No other changes from previous assessment.
[2024-04-29 03:56] LABS: Hematocrit 28.7 % (39.0-52.0); Hemoglobin 10.1 g/dL (13.0-18.0); Mean Corp Hgb Conc. 35.2 g/dL (33.0-37.0); Mean Corpuscular Hgb 29.2 pg (27.0-31.0); Mean Corpuscular Volume 82.9 fL (80.0-94.0); Mean Platelet Volume 10.3 fL (7.4-10.4); Platelet Count 185 10^3/uL (130-400); Red Blood Cell Count 3.46 10^6/uL (4.70-6.10); Red Cell Dist. Width 12.5 % (11.5-14.5); White Blood Cell Count 6.9 10^3/uL (4.8-10.8)
[2024-04-29 04:05] LABS: Blood Urea Nitrogen 21 mg/dl (9-20); Calcium 8.3 mg/dl (8.4-10.2); Carbon Dioxide 25 mmol/L (22-30); Chloride 98 mmol/L (98-107); Estimated Creatinine Clearance 115 ml/min; Glucose 178 mg/dl (70-99); Magnesium 2.3 mg/dl (1.6-2.3); Sodium 132 mmol/L (135-145); eGFR > 60.00
--- NOTE | 2024-04-29 05:25 | W.PN.CT ---
Today's Communication / Plan
-
-No major issues overnight. Hemodynamically and neurologically intac
-Had ~ 2hrs of A-Fib with RVR yesterday 04/28/24, responded to Lopressor 5mg IV and Amiodarone bolus x 2
-Toprol XL increased to 75 mg BID, PO Amiodarone currently increased to 400 TID
-Cont. current meds (ASA, Amiodarone, Toprol XL, Crestor)
-F/U 2-view cxr
-Encourage use of IS
-Wean off of O2
-OOB into chair/Ambulate
-Home later today vs tomorrow
Assessment / Plan
-
- Severe symptomatic AV stenosis with bicuspid morphology- s/p Surgical aortic valve replacement [25 mm bioprosthesis Cardenas Inspiris Resilia]; LAAE [35 mm clip] by Dr. Baer on 04/25/24, pod #4
- Intraop JOHN: LVEF preop was 60% and postop 60-65% with no wma. There was no paravalvular leak, the mean gradient across the new bioprosthesis was 3 mmHg. There was normal leaflet excursion of the valve.
- Recent STEMI requiring PCI and stenting of RCA 01/2019
- Diabetes melitis II, on insulin
- Asthma
- Depression
- History of PUD with GI bleed
- Hypertension
- Hyperlipidemia
- b/l shoulder surgery
- Acute postop blood loss anemia- stable, no transfusion
- Acute postop atelectasis
- Acute postop hypovolemia with subsequent hypervolemia
- Acute postop a-fib with RVR x 2hrs
Discussed patient care with: Cardiology, Nursing, Respiratory Therapy, Pharmacy and Care Team
Subjective
Procedure
s/p Surgical aortic valve replacement [25 mm bioprosthesis Cardenas Inspiris Resilia]; LAAE [35 mm clip] by Dr. Baer on 04/25/24
-
Date of Service: April 29, 2024
Pt c/o mild incisional pain, otherwise feels well
Objective Data
-
Lab Results
04/29/24 03:21
04/29/24 03:21
PT 17.8 Sec (11.4-14.6) H 04/25/24 10:42
INR 1.48 04/25/24 10:42
APTT 38.2 Sec (23.4-35.0) H 04/25/24 10:42
Vital Signs
Vital Signs
Temp Pulse Resp BP Pulse Ox
98.3 F 78 18 93/44 97
04/29/24 03:24 04/29/24 03:16 04/29/24 03:24 04/29/24 03:16 04/29/24 03:24
CT Intake/Output/Weight
04/28/24 04/28/24 04/29/24
06:59 18:59 06:59
Intake Total 815 / 1128 313 / 1128
Output Total 1080 / 1080
Balance -265 / 48 313 / 48
SaO2: 97 (2L)
Physical Exam
-
General: Awake, Oriented and AOx3
Cardiovascular: Regular rate & rhythm, No Murmurs, No Rub and No Gallop
Respiratory: Decreased Breath Sounds
Sternum: Stable
Incision: Clean, Dry, Intact and Dressing Intact
Extremities: No Edema
Data Reviewed
-
Lab Results: Results Reviewed
Medications: Active Meds Reviewed
Chest X-Ray: Report Reviewed and Image Reviewed
ECG: Report Reviewed and Image Reviewed
[2024-04-29] MEDS: TYLENOL 1000 MG PO ×3 (06:08→21:14)
[2024-04-29] MEDS: FLEXERIL 5 MG PO ×2 (06:33→21:51)
--- NOTE | 2024-04-29 06:48 | PTCARENOTE ---
Pt assisted OOB. Schedule Tylenol administered. Pt reporting upper back/shoulder pain, PRN Flexeril administered. Heating pad placed on back when pt returned into chair. Pt voided 550 mL clear/andres urine. Weight obtained on standing scale.
--- NOTE | 2024-04-29 07:33 | PN.DE.MGMTRT ---
Insulin Management
- -
04/29/2024: Diabetes management F/U:
63 year old male admitted for elective AVR. PMH: CAD, VA s/p cath, HTN, HLD, Asthma, h/o GIB/PUD, Insulin dependent T2DM. A1C 7.4%, Cr 0.8, eGFR >60
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 Uses CGM-Tommie 2 for glucose monitoring at home. Routinely see Endo in [place].
Pt awake, A/O X3, sitting up in chair, offers no complaints, able to discuss diabetes mgt.
POD #4 s/p Surgical aortic valve replacement
04/28 Premeal glucose range 198 TO 310, requiring additional corrective insulin with meals. Received Lantus 20 units @ HS, FBG 178 this AM
Will increase Lantus to 22 units @ HS and AC NovoLog to 8 units. Cont low corrective insulin.
Will follow and adjust insulin dose if needed.
Discussed with pt and Nurse at bedside.
Diabetes History
- -
Type of Diabetes: 2 requiring insulin
Pre-Admission Diabetes Regimen
04/29/24
03:21
Creatinine 0.6 L
Lab Results
Hemoglobin A1c 7.4 % (4.0-5.6) H 04/09/24 08:40
Insulin Pump Settings
IP Diabetes Regimen
04/28/24 04/28/24 04/28/24
08:25 09:29 12:42
Glucose
POC Glucose 250 H 252 H 310 H
04/28/24 04/28/24 04/29/24
17:21 21:49 03:21
Glucose 178 H
POC Glucose 198 H 212 H
Meal type: Lunch
Meal type: Breakfast
Amount consumed: Patient refused
Patient Education
[2024-04-29] MEDS: FLOVENT 44 MCG INHALER 2 PUFF INH ×2 (07:39→19:31)
--- NOTE | 2024-04-29 07:59 | W.PN.CD ---
Today's Communication / Plan
-
Maintain course.
Ambulate.
Incentive spirometry.
Monitor for further AF.
Impression / Plan
-
Impression/Plan: 63 y/o male with IDDM, HTN, HLD, CAD s/p PCI and severe admitted for elective SAVR and KATT exclusion by Dr. Baer 04/25/2024.
#Severe aortic stenosis
-Chronic.
-S/P #25 Cardenas Inspiris Resilia SAVR (Serial #[id number]) with Dr. Baer, 04/25/2024.
-S/P #35 Atriclip (Serial # [id number]).
-S/P rigid sternal fixation.
-Continue amiodarone, aspirin, metoprolol.
-Encourage incentive spirometry/ambulation.
-Chest tube/pain control per CT surgery.
#PAF
-Currently in NSR.
-Likely related to surgery.
-Rate/rhythm control with metoprolol and amiodarone.
-CHADS2-Vasc = 4 (HTN, Age x1, DM, Vascular Disease).
-No immediate need for therapeutic anticoagulation given brief duration of AF.
-He may benefit from a monitor at discharge.
#CAD
-Prior mid RCA stent 01/2019.
-RCA stent patent with no new disease on cath 01/2024.
-Continue ASA, rosuvastatin, metoprolol.
#HTN
-Chronic.
-Assess to resume ramipril as he recovers from OR.
#HLD
-Chronic, stable.
-Continue rosuvastatin.
#IDDM
-Chronic, stable.
-Per primary team.
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 Steele at [facility]
Subjective/Interval History:
The patient lapsed into atrial fibrillation x2 hours yesterday.
Amiodarone and metoprolol boluses given with good effect.
Converted at [ ].
Weight stable.
SaO2 = 94% on RA.
DATA:
Cardiac Catheterization/PCI, 01/20/2019:
CONCLUSIONS
1. Acute ST segment elevation myocardial infarction with successful stenting of the right coronary artery with a 3.0 x 28 mm Promus stent that was postdilated with a 3.0 mm noncompliant balloon
2. Moderate aortic stenosis
3. Preserved LV systolic function
Transthoracic Echocardiogram, 11/02/2023:
CONCLUSIONS
Normal left ventricular size, increased circumferential wall thickness and
systolic function.
No regional wall motion abnormalities are seen.
The ejection fraction is estimated at 65 %.
Grade 1 diastolic dysfunction.
Normal right ventricular size and function.
Normal left atrium.
Normal right atrium.
Structurally normal mitral valve without significant stenosis / mild
regurgitation.
Structurally abnormal aortic valve, calcified and restricted with significant
aortic stenosis. Peak gradient 77 mmHg/mean gradient 51 mmHg, GROVER = .58 sq cm.
Structurally normal tricuspid valve without significant stenosis w/ mild
regurgitation.
Estimated pulmonary artery pressure not obtained.
Structurally normal pulmonic valve without significant stenosis or
regurgitation.
Normal pericardium without effusion.
Normal aortic root.
IVC demonstrates normal respiratory variation.
Intraprocedural JOHN, 04/25/2024:
CONCLUSIONS
Normal biventricular systolic function with LVEF of 60-65% by visual
inspection. No regional wall motion abnormalities seen.
Bicuspid aortic valve with severe stenosis.
Grossly normal mitral and tricuspid valves.
Normal left atrial appendage.
Grade III atheromatous disease of the arch and descending thoracic aorta.
S/P AVR with size 25 bioprosthetic valve; KATT exclusion with clip.
The bioprosthetic valve is well-seated with no paravalvular leak seen. The
mean gradient is 3 mmHg with a cardiac index of 2.4. The left atrial appendage
is no longer visualized, and color flow Doppler confirms the absence of flow.
Otherwise unchanged exam.
Physical Exam
Vital Signs/Labs
Vital Signs
Temp Pulse Resp BP Pulse Ox
36.8 C 86 16 93/44 94
04/29/24 03:24 04/29/24 07:44 04/29/24 07:44 04/29/24 03:16 04/29/24 07:44
04/27/24 04/28/24 04/29/24
11:59 11:59 11:59
Actual Weight 86.4 kg 85 kg 85 kg
04/29/24 03:21
04/29/24 03:21
PT 17.8 Sec (11.4-14.6) H 04/25/24 10:42
INR 1.48 04/25/24 10:42
APTT 38.2 Sec (23.4-35.0) H 04/25/24 10:42
Magnesium 2.3 mg/dl (1.6-2.3) 04/29/24 03:21
Physical Exam
Constitutional: No acute distress and Comfortable
EENT: Anicteric and Moist mucous membranes
Cardiovascular: Rhythm & rate is regular, Pedal edema is absent, JVD pressure is normal, S1S2 is normal and Murmur/rub/gallop absent
Respiratory: Respiratory effort normal and Other (Decreased in the bases.)
GI: Soft, Distention absent, Flat, Non tender and Normal bowel sounds
Neuro/Psych: AO x 3
Data Reviewed
-
Date of Service: April 29, 2024
Medical Decision Making: Reviewed Test Results, Independent Historian Assessment and Test Interpretation
EKG: Tracing Personally Visualized and interpreted and Report Reviewed by me
Echo: Tracing Personally Visualized and interpreted and Report Reviewed by me
X-Ray/CT/US/MRI/NUC/PET: Image Personally Visualized and interpreted and Report Reviewed by me
Medical Tests (PFT, Pathology etc): Image Personally Visualized and interpreted and Report Reviewed by me
Labs: Labs Reviewed by me
Old Records: Reviewed
[2024-04-29] MEDS: LOW STRENGTH ASPIRIN 81 MG PO (08:37)
[2024-04-29] MEDS: PROTONIX 40 MG PO (08:37)
[2024-04-29] MEDS: TOPROL XL 75 MG PO ×2 (08:38→19:45)
[2024-04-29] MEDS: MAGNESIUM OXIDE 500 MG PO ×2 (08:38→19:45)
[2024-04-29] MEDS: NEURONTIN 200 MG PO ×3 (08:38→21:13)
[2024-04-29] MEDS: MUCINEX 600 MG PO ×2 (08:38→19:46)
[2024-04-29] MEDS: PACERONE 400 MG PO ×3 (08:39→21:13)
[2024-04-29] MEDS: SENOKOT-S 1 TABLET PO ×2 (08:39→19:46)
[2024-04-29] MEDS: ROXICODONE 5 MG PO ×2 (08:39→19:45)
[2024-04-29] MEDS: BACTROBAN 2% OINTMENT 1 APPLIC NASAL (08:39)
[2024-04-29] MEDS: LIDOCAINE 4% PATCH 1 PATCH TOPICAL ×2 (08:40)
--- NOTE | 2024-04-29 08:45 | PTCARENOTE ---
Assumed care of patient at 0700. Pt is awake, alert, and oriented. Pt with complaints of neck, upper back and sternal pain. PRN Roxicodone administered. Pt remains SR with HR 80's. BP 106/59 MAP 74. Pulse oximetry 96% on room air. Encouraged use of
IS. Pt tolerating PO diet. Voiding without issue. Midsternal incision approximated and PM HEAD COOK. Pt OOB in chair.
[2024-04-29] MEDS: NOVOLOG FLEXPEN-LOW RESISTANCE 2 UNITS SC (08:51)
[2024-04-29 08:57] LABS: Glucose - Point of Care 220 mg/dl (70-99)
[2024-04-29] MEDS: NOVOLOG FLEXPEN SC (09:31)
[2024-04-29] MEDS: NSS IV (09:56)
[2024-04-29 11:54] LABS: Glucose - Point of Care 326 mg/dl (70-99)
--- NOTE | 2024-04-29 12:00 | PTCARENOTE ---
Pt received from Heriberto GUILLEN; AAOx3, responds to spontaneous stimulation and follows commands; NSR on monitor; Trace B/L LE edema; DP and radial pulses present; Lungs diminished at bases; SpO2 96-98% on RA; IS 1500 ml; Occasional, non-productive
cough; Urinating clear yellow urine; Surgical sites intact; PIVx2 present; Patient denies any pain at this time; See nursing documentation for further details.
[2024-04-29] MEDS: NOVOLOG FLEXPEN-LOW RESISTANCE 4 UNITS SC (12:01)
[2024-04-29] MEDS: MILK OF MAGNESIA 30 ML PO (12:01)
[2024-04-29] MEDS: NOVOLOG FLEXPEN 8 UNITS SC ×2 (12:02→18:16)
--- NOTE | 2024-04-29 16:19 | PTCARENOTE ---
Patient showered with CHG; Reports medium loose, brown BM in bathroom; Chest tube dressing removed and sites left KELIN
[2024-04-29 17:16] LABS: Glucose - Point of Care 168 mg/dl (70-99)
[2024-04-29] MEDS: NOVOLOG FLEXPEN-LOW RESISTANCE 1 UNITS SC (18:17)
--- NOTE | 2024-04-29 20:49 | PTCARENOTE ---
Patient ambulating hallways with RN; Complains of 4/10 pain across upper chest - PRN Oxycodone 5 mg given accordingly and patient now resting comfortably in bed.
[2024-04-29 21:10] LABS: Glucose - Point of Care 168 mg/dl (70-99)
[2024-04-29] MEDS: CRESTOR 20 MG PO (21:13)
[2024-04-29] MEDS: LANTUS 0.22 UNITS SC (21:14)
[2024-04-29] MEDS: LOPRESSOR 5 MG IV (22:37)
[2024-04-29] MEDS: CORDARONE 103 MG IV ×2 (22:37→23:01)
--- NOTE | 2024-04-29 22:44 | PTCARENOTE ---
Pt went into afib with RVR; Patient denies dizziness, lightheadedness, chest pain, or SOB; HR high but other VSS; Patient placed on 2L NC as per [facility] Ed B.; IV Lopressor 5 mg and IV Amiodarone bolus ordered and given.
--- NOTE | 2024-04-29 23:09 | PTCARENOTE ---
assumed care of patient @ 1900. Received pt laying in bed, AOx3. Flat affect. Afib on monitor, 2nd amio bolus administered. BP stable. Lungs clear, diminished on 2L NC. Belly soft, normoactive. Voiding clear yellow urine Surgical inscisions intact.
PIVs patent. pt resting w/o complaints, call bird within reach .
[2024-04-30] VITALS (7 sets, daily range): BP systolic 98–131; BP diastolic 57–67; PULSE 88; O2SAT 98; BMI 29.5
--- NOTE | 2024-04-30 01:00 | PTCARENOTE ---
amio drip started per protocol
[2024-04-30] MEDS: CORDARONE 518 MG IV (01:09)
--- NOTE | 2024-04-30 03:00 | PTCARENOTE ---
pt converted to nsr at 0230. ctpa notified. no other change in assessment
[2024-04-30 04:14] LABS: Hematocrit 27.9 % (39.0-52.0); Mean Corp Hgb Conc. 35.8 g/dL (33.0-37.0); Mean Corpuscular Hgb 29.4 pg (27.0-31.0); Mean Corpuscular Volume 82.1 fL (80.0-94.0); Mean Platelet Volume 9.9 fL (7.4-10.4); Platelet Count 222 10^3/uL (130-400); Red Cell Dist. Width 12.4 % (11.5-14.5); White Blood Cell Count 6.7 10^3/uL (4.8-10.8)
--- NOTE | 2024-04-30 04:39 | W.PN.CT ---
Today's Communication / Plan
-
-No major issues overnight. Hemodynamically and neurologically intac
-Had ~ 2hrs of A-Fib with RVR on 04/28/24 and another 4hrs on 04/29/24. Currently on Amiodarone gtt after 5mg of IV Lopressor and Amiodarone bolus x 2 last night
-D/C Amiodarone gtt by 8AM and give PO dose
-Currently on Toprol XL 75 mg BID and PO Amiodarone 400 TID
-Toprol XL increased to 75 mg BID, PO Amiodarone currently increased to 400 TID
-Will discuss possible DOAC for postop PAF
-Cont. current meds (ASA, Amiodarone, Toprol XL, Crestor)
-Consider diuresis today, wt up 6lbs from preop based on measurements yesterday. Check wt today. Monitor hyponatremia 134-> 132-> pending this AM, fluid restriction
-Encourage use of IS
-OOB into chair/Ambulate
-Home later today
Assessment / Plan
-
- Severe symptomatic AV stenosis with bicuspid morphology- s/p Surgical aortic valve replacement [25 mm bioprosthesis Cardenas Inspiris Resilia]; LAAE [35 mm clip] by Dr. Baer on 04/25/24, pod #5
- Intraop JOHN: LVEF preop was 60% and postop 60-65% with no wma. There was no paravalvular leak, the mean gradient across the new bioprosthesis was 3 mmHg. There was normal leaflet excursion of the valve.
- Recent STEMI requiring PCI and stenting of RCA 01/2019
- Diabetes melitis II, on insulin
- Asthma
- Depression
- History of PUD with GI bleed
- Hypertension
- Hyperlipidemia
- b/l shoulder surgery
- Acute postop blood loss anemia- stable, no transfusion
- Acute postop atelectasis/pleural effusion
- Acute postop hypovolemia with subsequent hypervolemia
- Acute postop a-fib with RVR x 2hrs and again x 4hrs
Discussed patient care with: Cardiology, Nursing, Respiratory Therapy, Pharmacy and Care Team
Subjective
Procedure
s/p Surgical aortic valve replacement [25 mm bioprosthesis Cardenas Inspiris Resilia]; LAAE [35 mm clip] by Dr. Baer on 04/25/24
-
Date of Service: April 30, 2024
Pt c/o mild incisional pain, otherwise feels well. Ambulating halls without difficulty
Objective Data
-
Lab Results
04/30/24 03:56
PT 17.8 Sec (11.4-14.6) H 04/25/24 10:42
INR 1.48 04/25/24 10:42
APTT 38.2 Sec (23.4-35.0) H 04/25/24 10:42
Vital Signs
Vital Signs
Temp Pulse Resp BP Pulse Ox
97.7 F 137 16 129/58 97
04/29/24 23:00 04/29/24 22:40 04/29/24 23:00 04/29/24 22:39 04/29/24 23:00
CT Intake/Output/Weight
04/29/24 04/29/24 04/30/24
06:59 18:59 06:59
Intake Total 713 / 1528 360 / 838 478 / 838
Output Total 550 / 1630 425 / 425
Balance 163 / -102 -65 / 413 478 / 413
SaO2: 97 (RA)
Physical Exam
-
General: Awake, Oriented and AOx3
Cardiovascular: Regular rate & rhythm, No Murmurs, No Rub and No Gallop
Respiratory: Decreased Breath Sounds (at bases, otherwise clear)
Sternum: Stable
Incision: Clean, Dry, Intact and Dressing Intact
Extremities: No Edema
Data Reviewed
-
Lab Results: Results Reviewed
Medications: Active Meds Reviewed
Chest X-Ray: Report Reviewed and Image Reviewed
ECG: Report Reviewed and Image Reviewed
[2024-04-30 05:54] LABS: Blood Urea Nitrogen 14 mg/dl (9-20); Calcium 8.5 mg/dl (8.4-10.2); Carbon Dioxide 31 mmol/L (22-30); Chloride 96 mmol/L (98-107); Estimated Creatinine Clearance 98 ml/min; Glucose 128 mg/dl (70-99); Magnesium 2.2 mg/dl (1.6-2.3); Potassium 3.6 mmol/L (3.5-5.1); Sodium 135 mmol/L (135-145); eGFR > 60.00
[2024-04-30] MEDS: KCL 40 MEQ PO (07:02)
[2024-04-30] MEDS: TYLENOL 1000 MG PO ×2 (07:02→13:56)
[2024-04-30] MEDS: ROXICODONE 5 MG PO (07:02)
[2024-04-30] MEDS: FLOVENT 44 MCG INHALER 2 PUFF INH (07:26)
[2024-04-30] MEDS: SENOKOT-S 1 TABLET PO (08:10)
[2024-04-30] MEDS: TOPROL XL 75 MG PO (08:10)
[2024-04-30] MEDS: LOW STRENGTH ASPIRIN 81 MG PO (08:10)
[2024-04-30] MEDS: MAGNESIUM OXIDE 500 MG PO (08:10)
[2024-04-30] MEDS: NEURONTIN 200 MG PO (08:10)
[2024-04-30] MEDS: PACERONE 400 MG PO (08:10)
[2024-04-30] MEDS: PROTONIX 40 MG PO (08:10)
[2024-04-30] MEDS: MUCINEX 600 MG PO (08:10)
[2024-04-30] MEDS: KCL 20 MEQ PO (08:11)
[2024-04-30] MEDS: LASIX 20 MG IV (08:12)
[2024-04-30] MEDS: LIDOCAINE 4% PATCH 1 PATCH TOPICAL ×2 (08:12)
--- NOTE | 2024-04-30 08:18 | PN.DE.MGMTRT ---
Insulin Management
- -
04/30/2024: Diabetes management Follow up:
63 year old male admitted for elective AVR. PMH: CAD, NH s/p cath, HTN, HLD, Asthma, h/o GIB/PUD, Insulin dependent type 1. A1C 7.4%, Cr 0.8, eGFR >60
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 Uses CGM-Tommie 2 for glucose monitoring at home. Routinely see Endo in [place].
Pt awake, A/O X3, sitting up in chair, offers no complaints, able to discuss diabetes mgt.
POD #5 s/p Surgical aortic valve replacement
04/29 Premeal glucose range 168 to 326, requiring additional corrective insulin with meals. Received Lantus 20 units @ HS, FBG 128 this AM
Lantus was increased from 20 units to 22 units @ HS and AC NovoLog to 8 units with low corrective insulin. Will make no change to doses today, patient for discharge later today.
Will follow for further needed adjustments.
Discussed with pt and Nurse.
Diabetes History
- -
Type of Diabetes: 1
Pre-Admission Diabetes Regimen
04/30/24 04/30/24 04/30/24
03:56 05:00 05:10
Creatinine Cancelled Cancelled Cancelled
04/30/24
05:18
Creatinine 0.7
Lab Results
Hemoglobin A1c 7.4 % (4.0-5.6) H 04/09/24 08:40
Insulin Pump Settings
IP Diabetes Regimen
04/29/24 04/29/24 04/29/24
08:49 11:53 17:14
Glucose
POC Glucose 220 H 326 H 168 H
04/29/24 04/30/24 04/30/24
21:09 03:56 05:00
Glucose Cancelled Cancelled
POC Glucose 168 H
04/30/24 04/30/24
05:10 05:18
Glucose Cancelled 128 H
POC Glucose
Meal type: Dinner
Meal type: Lunch
Meal type: Breakfast
Amount consumed: 100%
Amount consumed: 0
Patient Education
[2024-04-30] MEDS: NOVOLOG FLEXPEN-LOW RESISTANCE SC (08:24)
[2024-04-30 08:26] LABS: Glucose - Point of Care 142 mg/dl (70-99)
--- NOTE | 2024-04-30 08:26 | W.PN.CD ---
Today's Communication / Plan
-
Increase metoprolol to 100 mg BID.
Continue amiodarone.
Apixaban 5 mg BID.
Outpatient monitor placement to evaluate AF burden.
CT surgery angling for discharge.
Impression / Plan
-
Impression/Plan: 63 y/o male with IDDM, HTN, HLD, CAD s/p PCI and severe admitted for elective SAVR and KATT exclusion by Dr. Baer 04/25/2024.
#Severe aortic stenosis
-Chronic.
-S/P #25 Cardenas Inspiris Resilia SAVR (Serial #[id number]) with Dr. Baer, 04/25/2024.
-S/P #35 Atriclip (Serial # [id number]).
-S/P rigid sternal fixation.
-Continue amiodarone, aspirin, metoprolol.
-Encourage incentive spirometry/ambulation.
-Chest tube/pain control per CT surgery.
#PAF
-Currently in NSR.
-Likely related to surgery.
-Rate/rhythm control with metoprolol and amiodarone gtt. Amiodarone increased to 400 mg PO BID. Increase metoprolol to 100 mg BID
-CHADS2-Vasc = 4 (HTN, Age x1, DM, Vascular Disease).
-herapeutic anticoagulation with apixaban 5 mg BID.
-Given recurrence, place a 30 day monitor at his outpatient follow up (limited value in the immediate post op setting).
#CAD
-Prior mid RCA stent 01/2019.
-RCA stent patent with no new disease on cath 01/2024.
-Continue ASA, rosuvastatin, metoprolol.
#HTN
-Chronic.
-Assess to resume ramipril as he recovers from OR.
#HLD
-Chronic, stable.
-Continue rosuvastatin.
#IDDM
-Chronic, stable.
-Per primary team.
Outpatient shank sorter is Dr. Steele at [facility]
Subjective/Interval History:
Another 2 hours of PAF overnight, converted at 02:30.
Amiodarone gtt started, then converted to PO.
DATA:
Cardiac Catheterization/PCI, 01/20/2019:
CONCLUSIONS
1. Acute ST segment elevation myocardial infarction with successful stenting of the right coronary artery with a 3.0 x 28 mm Promus stent that was postdilated with a 3.0 mm noncompliant balloon
2. Moderate aortic stenosis
3. Preserved LV systolic function
Transthoracic Echocardiogram, 11/02/2023:
CONCLUSIONS
Normal left ventricular size, increased circumferential wall thickness and
systolic function.
No regional wall motion abnormalities are seen.
The ejection fraction is estimated at 65 %.
Grade 1 diastolic dysfunction.
Normal right ventricular size and function.
Normal left atrium.
Normal right atrium.
Structurally normal mitral valve without significant stenosis / mild
regurgitation.
Structurally abnormal aortic valve, calcified and restricted with significant
aortic stenosis. Peak gradient 77 mmHg/mean gradient 51 mmHg, GROVER = .58 sq cm.
Structurally normal tricuspid valve without significant stenosis w/ mild
regurgitation.
Estimated pulmonary artery pressure not obtained.
Structurally normal pulmonic valve without significant stenosis or
regurgitation.
Normal pericardium without effusion.
Normal aortic root.
IVC demonstrates normal respiratory variation.
Intraprocedural JOHN, 04/25/2024:
CONCLUSIONS
Normal biventricular systolic function with LVEF of 60-65% by visual
inspection. No regional wall motion abnormalities seen.
Bicuspid aortic valve with severe stenosis.
Grossly normal mitral and tricuspid valves.
Normal left atrial appendage.
Grade III atheromatous disease of the arch and descending thoracic aorta.
S/P AVR with size 25 bioprosthetic valve; KATT exclusion with clip.
The bioprosthetic valve is well-seated with no paravalvular leak seen. The
mean gradient is 3 mmHg with a cardiac index of 2.4. The left atrial appendage
is no longer visualized, and color flow Doppler confirms the absence of flow.
Otherwise unchanged exam.
Physical Exam
Vital Signs/Labs
Vital Signs
Temp Pulse Resp BP Pulse Ox
36.7 C 84 16 111/61 98
04/30/24 04:00 04/30/24 07:29 04/30/24 07:29 04/30/24 03:53 04/30/24 06:35
04/28/24 04/29/24 04/30/24
11:59 11:59 11:59
Actual Weight 85 kg 85 kg 85.3 kg
04/30/24 03:56
04/30/24 05:18
PT 17.8 Sec (11.4-14.6) H 04/25/24 10:42
INR 1.48 04/25/24 10:42
APTT 38.2 Sec (23.4-35.0) H 04/25/24 10:42
Magnesium 2.2 mg/dl (1.6-2.3) 04/30/24 05:18
Physical Exam
Constitutional: No acute distress and Comfortable
EENT: Anicteric and Moist mucous membranes
Cardiovascular: Rhythm & rate is regular, Pedal edema is absent, JVD pressure is normal, S1S2 is normal and Murmur/rub/gallop absent
Respiratory: Respiratory effort normal, Lungs clear to auscul., Wheeze Absent, Crackles Absent and Rhonchi Absent
GI: Soft, Distention absent, Flat, Non tender and Normal bowel sounds
Neuro/Psych: AO x 3
Data Reviewed
-
Date of Service: April 30, 2024
Medical Decision Making: Reviewed Test Results, Independent Historian Assessment, Test Interpretation and Review of Case with other Provider
EKG: Tracing Personally Visualized and interpreted and Report Reviewed by me
Echo: Report Reviewed by me
X-Ray/CT/US/MRI/NUC/PET: Image Personally Visualized and interpreted and Report Reviewed by me
Medical Tests (PFT, Pathology etc): Report Reviewed by me
Labs: Labs Reviewed by me
Old Records: Reviewed
--- NOTE | 2024-04-30 08:40 | PTCARENOTE ---
[facility] shift [facility]; pt AAOx3 and resting comfortably in chair; NSR on monitor and VSS; PIV x2 patient; Lungs diminished; IS to 1500; positive bowel sounds; pt voiding clear yellow urine; palpable pulses throughout; no edema noted;
surgical sites C/D/I; see nursing documentation for further details.
[2024-04-30] MEDS: NOVOLOG FLEXPEN 8 UNITS SC (09:31)
[2024-04-30] MEDS: ELIQUIS 5 MG PO (09:32)
[2024-04-30] MEDS: NSS IV (09:39)
--- NOTE | 2024-04-30 10:27 | CM ---
Priced Eliquis thru insurance, [employer]/ [phone]. Estimated cost of Eliquis for 30 d RX would be $25.
Will provide a free 30 d coupon + a $10/mo coupon.
--- NOTE | 2024-04-30 10:42 | W.DCSUMMARY ---
Discharge Summary
Discharge Data
Date of Admission: 04/25/24
Date of Discharge: 04/30/24
Total time spent discharging patient (in min): 45
-
Pending Results: No
Hospital Course
Primary care physician:
Dr. Adam Mae
Outpatient distribution system operator:
Dr. Steele
Inpatient consultants:
CBC, supervisor filtration, DM management CLOCK AND WATCH HANDS PAINTER
Procedures:
1. Surgical aortic valve replacement [25 mm bioprosthesis Cardenas Inspiris Resilia]; LAAE [35 mm clip] by Dr. Baer on 04/25/24
Primary Diagnosis:
1. Severe symptomatic aortic valve stenosis with bicuspid morphology
Secondary Diagnoses:
1. Hyperlipidemia
2. Recent STEMI requiring PCI and stenting
3. 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
4. Asthma
5. Depression
6. History of PUD with GI bleed
7. Hypertension
HPI: 63-year male with known aortic valve stenosis. He recently had a STEMI requiring emergency stenting procedure. Recent echocardiogram demonstrated severe gradients. He also developed symptoms in the form of shortness of breath and fatigue.
Given his young age, multidisciplinary team discussion and lifelong planning for his aortic valve disease, consensus was to pursue surgical valve replacement. Therefore, he was admitted electively on 04/[address] Baer.
Hospital course: Patient went to [facility] on 04/25. Postoperatively he returned to the CVICU on Levophed, Precedex, and insulin. Precedex was turned off patient was extubated by 1700 and Levophed was weaned off. On 04/26 postoperative day 1, patient
was started on beta-blockers and was given albumin for hypovolemia. On 04/27 postoperative day #2 patient's Henson was removed. He was diuresed with 40 mg of IV Lasix. He was transitioned off insulin drip to Lantus and sliding scale insulin.
Beta-blockers were increased due to tachycardia. Wires and chest tubes were removed. On 04/28 postoperative day #3, vital signs remained stable Lopressor was increased to 50 mg twice daily and then later to 75 mg twice daily. On 04/29 postoperative
day #4 patient had 2 hours of atrial fibrillation he was started on an amiodarone infusion and bolus and converted back to sinus rhythm. 2 view chest x-ray was performed and was stable. On 04/30 postoperative day #5, overnight he had an additional
4 hours of atrial fibrillation he was again given an amnio bolus and Amio infusion. He was also started on Eliquis 5 mg twice daily and diuresed with 40 of po Lasix. He was deemed stable for discharge and his prescriptions were sent to his
preferred pharmacy.
Home medication changes:
See below
Discharge Plan
-
Patient Disposition: Home (Routine Discharge)
Discharge Diagnosis/Procedures: Surgical aortic valve replacement [25 mm bioprosthesis Cardenas Inspiris Resilia]; LAAE [35 mm clip] by Dr. Baer on 04/25/24
Condition: Good
Diet: Low Cholesterol and 2 Gram Sodium
Activity: As tolerated
Driving Restrictions: Not until seen by your Dr
Bathing Restrictions: OK to Shower
Blood Work: BMP in 1 week
Other Services: Cardiac Rehab
Specialty Instructions: Weigh Daily- Call MD for wt gain/loss 3 lbs overnight/5 lbs in 1 week
Activity Restrictions/Additional Instructions:
Please call [facility] 2 program to schedule your first visit at [phone]
ACTIVITY:
-No strenuous activity: no heavy lifting, pushing, pulling anything over 15 pounds for one month
-continue to use stairs as tolerated
DRIVING RESTRICTIONS:
-No driving for one month or until approved by your surgeon
WOUND CARE:
-Shower daily. Use soap & water.
-No lotions, creams or powders on incision area.
DIET:
-continue a low fat/low cholesterol diet.
-IF you are diabetic, continue carb controlled diet.
CARDIAC REHAB:
-Please make appointment to start in 5-6 weeks with your local hospital program. (See Cardiac Rehabilitation Discharge Booklet).
SPECIALTY INSTRUCTIONS:
-Weigh yourself daily. Call your physician for any weight gain/loss of 3 lbs overnight or 5 lbs in one week.
-REPORT any clicking noise or uneven appearance of your sternum to your surgeon immediately.
-If you smoke, you are instructed to quit. The [place] smoking hotline phone number is [phone]
Referrals:
[facility] [Outside] ([phone])
Adam Mae DO [Family Provider] -
Imtiaz Steele DO [Active] - 06/03/24 9:20 am
Alvaro Baer MD [Active] - 05/29/24 2:45 pm
Additional Discharge Medication Instructions: Please take amiodarone 200mg twice a day for 14 days and then decrease to 200mg daily
You are on eliquis 5mg twice a day
You will be discharged on lasix, please weigh yourself everyday.
Please note that your dose of metoprolol has changed and your ramipril has been stopped
Prescriptions:
New
cyclobenzaprine 10 mg Tablet
5 mg PO HSPRN PRN (Reason: muscle spasm) Qty: 30 0RF
amiodarone 200 mg Tablet
200 mg PO BID 14 Days Qty: 28 0RF
acetaminophen 325 mg Tablet
650 mg PO Q4HPRN PRN (Reason: mild pain,headache,temp >101F ) Qty: 1 0RF
gabapentin 100 mg Capsule
200 mg PO TID Qty: 60 0RF
oxycodone 5 mg Tablet
5 mg PO Q4HPRN PRN (Reason: severe pain) Qty: 15 0RF
amiodarone 200 mg tablet
200 mg PO DAILY Qty: 60 0RF
Rx Instructions:
Please take 200mg twice a day for 14days and then decrease to 200mg daily
metoprolol succinate 50 mg tablet extended release 24 hr
75 mg PO BID Qty: 60 1RF
Eliquis 5 mg tablet
5 mg PO BID Qty: 90 0RF
furosemide [Lasix] 20 mg tablet
20 mg PO DAILY Qty: 7 0RF
Rx Instructions:
Take daily for 7 days, then stop
potassium chloride 10 mEq capsule, extended release
10 meq PO DAILY Qty: 7 0RF
Continued
rosuvastatin 20 MG tablet
20 mg PO HS
insulin lispro 100 unit/mL Insulin Pen
10 sliding scale dose SC ACHSPRN
Arnuity Ellipta 100 mcg/actuation Blister With Device
1 inh INHALATION DAILY
Airsupra 90-80 mcg/actuation Hfa Aerosol Inhaler
2 inh INHALATION PRN PRN (Reason: SOB)
insulin glargine [Basaglar KwikPen U-100 Insulin] 100 UNIT/ML insulin pen
30 unit SC HS
pantoprazole 40 MG tablet,delayed release (DR/EC)
40 mg PO DAILY
aspirin 81 MG tablet,chewable
81 mg PO DAILY
Discontinued
ramipril 2.5 MG capsule
2.5 mg PO DAILY
metoprolol succinate 25 MG tablet extended release 24 hr
25 mg PO DAILY
Discharge Orders:
Discharge Patient (As Directed); Ordered 04/30/24
Ordered By: Lucina Farah
Care Plan Goals
Care Plan Goals:
Problem: Readiness for enhanced knowledge related to diagnosis and treatment plan
Goal: Understand your diagnosis and treatment plan needs, including medications if applicable.
Instructions: Know your diagnosis, underlying causes and treatment plan options, including medications if applicable. Consult with your health care team to learn about your diagnosis and treatment plan, including medications if applicable.
Discharge Date and Time
Print Language: BOLIVIAN
--- NOTE | 2024-04-30 10:50 | CM ---
Met w/ patient at bedside.
Pt. feels well and is prepared for DC today.
We reviewed DC plan for home w/ [facility]. He is agreeable to this.
Also reviewed estimated cost of Eliquis and coupons. Pt. aware/agreeable to this.
Plan is for home w/ [facility].
[2024-04-30] MEDS: TOPROL XL 25 MG PO (12:40)
--- NOTE | 2024-04-30 14:52 | PTCARENOTE ---
Addendum entered by Anjana Franco RN 04/30/24 14:56:
Pt showered yesterday and reviewed instructions with discharge paperwork.
Original Note:
at bedside, discharge paperwork gone over and all questions answered; IVs removed and spa manager removed; pt discharge by wheelchair.
== END 2024-04-30 15:19 | disposition home health service (06) | DRG 220 ==
LOC: CVICU 05:04
PROVIDERS: Anesthesiology; Clinical Nurse Specialist Acute Care; Physician Assistant Medical; ADMITTING PHYSICIAN Thoracic Surgery (Cardiothoracic Vascular Surgery); CONSULT PHYSICIAN Internal Medicine; FAMILY PHYSICIAN Family Medicine Adult Medicine
PROC: 5A1221Z Performance of Cardiac Output, Continuous (ICD-10-PCS; 2024-04-25)
PROC: B24BZZ4 Ultrasonography of Heart with Aorta, Transesophageal (ICD-10-PCS; 2024-04-25)
PROC: 02L70CK Occlusion of Left Atrial Appendage with Extraluminal Device, Open Approach (ICD-10-PCS; 2024-04-25)
PROC: 02RF08Z Replacement of Aortic Valve with Zooplastic Tissue, Open Approach (ICD-10-PCS; 2024-04-25)
DX: I35.0 Nonrheumatic aortic (valve) stenosis (principal); D62 Acute posthemorrhagic anemia; J98.11 Atelectasis; J90 Pleural effusion, not elsewhere classified; E86.1 Hypovolemia; R00.0 Tachycardia, unspecified; I48.0 Paroxysmal atrial fibrillation; E87.70 Fluid overload, unspecified; E11.9 Type 2 diabetes mellitus without complications; J45.909 Unspecified asthma, uncomplicated; F32.A Depression, unspecified; I10 Essential (primary) hypertension; E78.5 Hyperlipidemia, unspecified; I25.10 Atherosclerotic heart disease of native coronary artery without angina pectoris; R91.1 Solitary pulmonary nodule; I25.2 Old myocardial infarction; Z95.5 Presence of coronary angioplasty implant and graft; Z87.891 Personal history of nicotine dependence; Z87.11 Personal history of peptic ulcer disease; Z79.4 Long term (current) use of insulin; Z79.82 Long term (current) use of aspirin
CPT/HCPCS: 88305; 88311; 36415; 71045; 71046; 80048; 80053; 81003; 82248; 82330; 82565; 82805; 82810; 82947; 82962; 83036; 83735; 84132; 84302; 84520; 85014; 85018; 85025; 85027; 85049; 85610; 85730; 86850; 86900; 86901; 86920; 87070; 93005; 93312; 93320; 93325; 93880; 94002; 94640; C1713; J2916; P9045